=== PATIENT | female | born 1960 | race African-American/Black ===

== ENCOUNTER 2018-06-17 22:39 | Inpatient (IN) | payer MEDICAID, OTHER ==
[~2018-06-17] VITALS: Ht 162.6 cm; Wt 99.8 kg
--- NOTE | 2018-06-17 23:00 | NUR ---
ED Nurse Note: Patient FREDERICK from [facility] c/o edema in bilateral lower extremities, hematuria, and lower abdominal pain. Patient reports pain in bilateral lower extremities and lower abdomen for 1x day. Patient denies N/V. Patient states she noticed blood in her yan catheter earliar this morning. Patient finished last dose of ABX for a UTI today.
[2018-06-17] MEDS ORDERED: CRANBERRY500 M3 PO (23:22)
[2018-06-17] MEDS ORDERED: ACETAMINOPHEN325 M1 ORAL (23:22)
[2018-06-17] MEDS ORDERED: DIPHENHYDRAMINE25 M1 ORAL (23:22)
[2018-06-17] MEDS ORDERED: INVANZ1 G1 IM (23:22)
[2018-06-17] MEDS ORDERED: XARELTO15 MG ORAL (23:22)
[2018-06-17] MEDS ORDERED: QUETIAPINE FUMA25 MG ORAL (23:22)
[2018-06-17] MEDS ORDERED: BACLOFEN10 MG ORAL (23:22)
[2018-06-17] MEDS ORDERED: FUROSEMIDE40 MG ORAL (23:22)
[2018-06-17] MEDS ORDERED: LOVENOX40 MG/0.4 SUBQ (23:22)
[2018-06-17] MEDS ORDERED: ZOFRAN4 M1 ORAL (23:22)
[2018-06-17] MEDS ORDERED: FERROUS SULFAT325 M2 ORAL (23:22)
[2018-06-17] MEDS ORDERED: COLACE250 MG ORAL (23:22)
[2018-06-17] MEDS ORDERED: MOM30 ML ORAL (23:22)
[2018-06-17] MEDS ORDERED: PRO-AMATINE10 MG ORAL (23:22)
[2018-06-17] MEDS ORDERED: VITAMIN C500 M1 ORAL (23:22)
[2018-06-17] MEDS ORDERED: ZINC50 M1 ORAL (23:22)
[2018-06-17] MEDS ORDERED: CEPHALEXIN500 MG ORAL (23:22)
[2018-06-17] MEDS ORDERED: BISACODYL5 MG ORAL (23:22)
[2018-06-17] MEDS ORDERED: MELATONIN3 M2 PO (23:22)
[2018-06-17] MEDS ORDERED: ABILIFY10 MG ORAL (23:22)
[2018-06-17] MEDS ORDERED: MS CONTIN15 MG ORAL (23:22)
[2018-06-17] MEDS ORDERED: BENADRYL ITCH118 ML TP (23:22)
[2018-06-17] MEDS ORDERED: POTASSIUM CHLO20 ME2 ORAL (23:22)
[2018-06-17] MEDS ORDERED: NEXIUM40 MG ORAL (23:22)
[2018-06-17] MEDS ORDERED: STRIBILD TABLE1 EACH PO (23:22)
[2018-06-17] MEDS ORDERED: ZANAFLEX4 M1 ORAL (23:22)
[2018-06-17] MEDS ORDERED: NEURONTIN300 MG ORAL (23:22)
[2018-06-17] MEDS ORDERED: PERCOCET 5-3251 EACH ORAL (23:22)
--- NOTE | 2018-06-18 | NUR ---
ED Nurse Note: patient refused chest x ray
[2018-06-18 00:18] LABS: APPEARANCE,URINE CLOUDY; BILIRUBIN, URINE NEGATIVE (NEGATIVE); GLUCOSE, URINE (UA) NEGATIVE (NEGATIVE); KETONES,URINE 1+ (NEGATIVE); LEUKOCYTE ESTERASE ,URINE 3+ (NEGATIVE); NITRITE,URINE POSITIVE (NEGATIVE); PH,URINE 5 (4.5-8.0); PROTEIN,URINE 4+ (NEGATIVE); UROBILINOGEN,URINE 1 MG/DL (0.0-1.0)
[2018-06-18 00:22] LABS: BASOPHILS % (AUTO) 0.6 % (0.0-2.0); EOSINOPHILS % (AUTO) 2.4 % (0.0-3.0); HEMATOCRIT 39.1 % (37.0-47.0); HEMOGLOBIN 13.3 G/DL (12.0-16.0); LYMPHOCYTES % (AUTO) 24.5 % (20.0-45.0); MEAN CORPUSCULAR VOLUME 84 FL (80-99); MONOCYTES % (AUTO) 7.6 % (1.0-10.0); NEUTROPHILS % (AUTO) 64.9 % (45.0-75.0); PLATELET COUNT 389 K/UL (150-450); RED BLOOD COUNT 4.62 M/UL (4.20-5.40); RED CELL DISTRIBUTION WIDTH 13.4 % (11.6-14.8); WHITE BLOOD COUNT 8.6 K/UL (4.8-10.8)
[2018-06-18 00:32] VITALS: BP 118/68
[2018-06-18 00:37] LABS: ANION GAP 5 mmol/L (5-15); BLOOD UREA NITROGEN 13 mg/dL (7-18); CALCIUM 8.9 MG/DL (8.5-10.1); CARBON DIOXIDE 34 MMOL/L (21-32); CHLORIDE 100 MMOL/L (98-107); CREATININE 1.1 MG/DL (0.55-1.30); SODIUM 139 MMOL/L (136-145)
[2018-06-18 00:37] LABS: COLOR,URINE BROWN
[2018-06-18 00:41] LABS: ALANINE AMINOTRANSFERASE 16 U/L (12-78); ALBUMIN/GLOBULIN RATIO 0.7 (1.0-2.7); ALKALINE PHOSPHATASE 91 U/L (46-116); ASPARTATE AMINO TRANSFERASE 16 U/L (15-37); BILIRUBIN,TOTAL 0.7 MG/DL (0.2-1.0)
[2018-06-18] MEDS ORDERED: Piperacillin/Tazobactam 3.375 GM in NS 110 ML IVPB ONE (00:45)
[2018-06-18] MEDS ORDERED: Morphine Sulfate 4mg/ml Inj (IV/IM USE ONLY) IVP ONE (00:45)
--- NOTE | 2018-06-18 01:45 | NUR ---
ED Nurse Note: Patient sleeping comfortably on gurney, breathing is even and unlabored, VSS, no s/s of acute distress noted at this time.
--- NOTE | 2018-06-18 03:10 | NUR ---
ED Nurse Note: Patient refused PO potassium and to have her belongings recorded. ERMD aware
[2018-06-18 03:15] VITALS: BP 109/66
--- NOTE | 2018-06-18 03:21 | NUR ---
ED Nurse Note: Patient transferred to med/surg unit. Patient AOx4, VSS, non ambulatory, no s/s of acute distress noted at this time. Patient has wounds on bilateral lower extremities covered by a bandage, wounds on her sacral area. Patient sent with all personal belongings. Patient tolerated transfer well. Patient report given to Mima LAL at bedside.
[2018-06-18] MEDS ORDERED: Morphine Sulfate 2mg/ml Inj IVP PRN (03:45)
[2018-06-18 04:00] VITALS: BP 109/66
--- NOTE | 2018-06-18 04:04 | Emergency Room Report ---
History of Present Illness General Chief Complaint: Female Urogenital Problems Source: Patient, EMS Present Illness HPI 57-year-old female presents ED for evaluation. Brought in by EMS from half-way facility. Complaining of pain and swelling to both legs. Has been there for many days. States she's been treated for wounds on her legs. States the pain is not resolving. Also complaining of dysuria. States she's being currently treated for UTI with antibiotics. Pain is throbbing, 8 out of 10, nonradiating. Denies fevers or chills. States her wounds are weeping on the legs. No other aggravating relieving factors. Denies any other associated symptoms Allergies: Coded Allergies: No Known Allergies (Unverified , 06/17/18) Patient History Past Medical History: AFib, CVA/TIA, psych hx, HIV, renal disease Past Surgical History: none Pertinent Family History: none Social History: Denies: smoking, alcohol use, drug use Now: No Immunizations: UTD Reviewed Nursing Documentation: PMH: Agreed; PSxH: Agreed Nursing Documentation-PMH Hx Cardiac Problems: Yes - A Fib Hx Cancer: Yes - wounds on both legs, sacrum Hx Dialysis: Yes - UTI, Acute Kidney failure History Of Psychiatric Problem: Yes - Bipolar Hx Neurological Problems: Yes - Quadriplegia Hx Cerebrovascular Accident: Yes - Anemia, HIV+, Sepsis Review of Systems All Other Systems: negative except mentioned in HPI Physical Exam Vital Signs Date Time Temp Pulse Resp B/P (MAP) Pulse Ox O2 Delivery O2 Flow Rate FiO2 06/17/18 22:42 98.1 76 18 118/68 97 Room Air Sp02 EP Interpretation: reviewed, normal General Appearance: no apparent distress, alert, GCS 15, non-toxic Head: normocephalic Eyes: bilateral eye normal inspection, bilateral eye PERRL ENT: normal ENT inspection Neck: normal inspection Respiratory: chest non-tender, lungs clear, normal breath sounds, speaking full sentences Cardiovascular #1: regular rate, rhythm, no edema Gastrointestinal: normal bowel sounds, non tender, soft, non-distended, no guarding, no rebound Rectal: deferred Genitourinary: no CVA tenderness Musculoskeletal: swelling, tender Neurologic: alert, oriented x3, responsive, motor strength/tone normal, sensory intact, speech normal Psychiatric: anxious Skin: other - ulcerations to bilateral Lower extremities. induration/erythema Lymphatic: normal inspection Medical Decision Making Diagnostic Impression: Primary Impression: Bilateral lower leg cellulitis Additional Impressions: Hematuria Qualified Codes: R31.9 - Hematuria, unspecified UTI (urinary tract infection) Qualified Codes: N39.0 - Urinary tract infection, site not specified ER Course Hospital Course 57-year-old female presents to ED with pain, swelling to bilateral lower extremities. Differential diagnoses include: Cellulitis, sepsis, abscess, rash. Clinical course Patient placed on stretcher. After initial history and physical I ordered labs , blood Cx, UA, CXR, pain meds labs reviewed - no leukocytosis, Hb/Hct stable, K 3.0, lactic ok, UA + bacteria CXR - patient refused EKG - NSR, no acute ischemic changes interpreted by me antibiotics given. With the existing wounds on the legs consideration for nonhealing wounds with surrounding cellulitis Case discussed with Dr Mcgregor and he agreed to accept the patient to his service for further care and support Diagnosis - bilatearl lower extremity cellulitis , UTI, hematuria Patient admitted to floor in serrious condition Labs Test 06/17/18 23:50 06/18/18 00:00 White Blood Count 8.6 K/UL (4.8-10.8) Red Blood Count 4.62 M/UL (4.20-5.40) Hemoglobin 13.3 G/DL (12.0-16.0) Hematocrit 39.1 % (37.0-47.0) Mean Corpuscular Volume 84 FL (80-99) Mean Corpuscular Hemoglobin 28.7 PG (27.0-31.0) Mean Corpuscular Hemoglobin Concent 34.0 G/DL (32.0-36.0) Red Cell Distribution Width 13.4 % (11.6-14.8) Platelet Count 389 K/UL (150-450) Mean Platelet Volume 5.7 FL (6.5-10.1) Neutrophils (%) (Auto) 64.9 % (45.0-75.0) Lymphocytes (%) (Auto) 24.5 % (20.0-45.0) Monocytes (%) (Auto) 7.6 % (1.0-10.0) Eosinophils (%) (Auto) 2.4 % (0.0-3.0) Basophils (%) (Auto) 0.6 % (0.0-2.0) Sodium Level 139 MMOL/L (136-145) Potassium Level 3.0 MMOL/L (3.5-5.1) Chloride Level 100 MMOL/L (98-107) Carbon Dioxide Level 34 MMOL/L (21-32) Anion Gap 5 mmol/L (5-15) Blood Urea Nitrogen 13 mg/dL (7-18) Creatinine 1.1 MG/DL (0.55-1.30) Estimat Glomerular Filtration Rate > 60 mL/min (>60) Glucose Level 105 MG/DL (74-106) Lactic Acid Level 1.40 mmol/L (0.4-2.0) Calcium Level 8.9 MG/DL (8.5-10.1) Total Bilirubin 0.7 MG/DL (0.2-1.0) Aspartate Amino Transf (AST/SGOT) 16 U/L (15-37) Alanine Aminotransferase (ALT/SGPT) 16 U/L (12-78) Alkaline Phosphatase 91 U/L (46-116) Total Protein 7.6 G/DL (6.4-8.2) Albumin 3.0 G/DL (3.4-5.0) Globulin 4.6 g/dL Albumin/Globulin Ratio 0.7 (1.0-2.7) Urine Color Brown Urine Appearance Cloudy Urine pH 5 (4.5-8.0) Urine Specific [place] 1.020 (1.005-1.035) Urine Protein 4+ (NEGATIVE) Urine Glucose (UA) Negative (NEGATIVE) Urine Ketones 1+ (NEGATIVE) Urine Blood 5+ (NEGATIVE) Urine Nitrite Positive (NEGATIVE) Urine Bilirubin Negative (NEGATIVE) Urine Urobilinogen 1 MG/DL (0.0-1.0) Urine Leukocyte Esterase 3+ (NEGATIVE) Urine RBC Tntc /HPF (0 - 2) Urine WBC Tntc /HPF (0 - 2) Urine Squamous Epithelial Cells None /LPF (NONE/OCC) Urine Bacteria Moderate /HPF (NONE) Urine Yeast Moderate /HPF (NONE) EKG Diagnostic Results Rate: normal Rhythm: NSR ST Segments: no acute changes ASA given to the pt in ED: No Rhythm Strip Diag. Results EP Interpretation: yes Rhythm: NSR, no PVC's, no ectopy Last Vital Signs Date Time Temp Pulse Resp B/P (MAP) Pulse Ox O2 Delivery O2 Flow Rate FiO2 06/18/18 03:25 98.1 83 16 109/66 95 Room Air Status: improved Disposition: ADMITTED INPATIENT Condition: Serious Referrals: NON PHYSICIAN (PCP) Chicho Garcia MD Jun 18, 2018 04:04
[2018-06-18] MEDS ORDERED: Loperamide 2mg cap ORAL ONE (04:15)
[2018-06-18] MEDS: Morphine Sulfate 4mg/ml Inj (IV/IM USE ONLY) IVP PRN ×2 (04:24→11:08)
[2018-06-18] MEDS ORDERED: Piperacillin/Tazobactam 3.375 GM in D5W 110 ML IVPB SCH ×4 (06:00)
--- NOTE | 2018-06-18 06:00 | NUR ---
NURSE NOTES: Admitted a 57 year old female, alert and oriented x4, non-compliant, with complaint of pain on bilateral lower extremities. Will medicate as ordered. Pt refused wound photos, dressing change, repositions and cleaning. Explained the risks and benefits. Patient verbalized understanding but still refused. Spoke to Dr. Davis and obtained admission orders, carried out. MD ordered Loperamide one dose for pt's diarrhea x1 day per patient. MD also aware that patient refused Zosyn. SPR mattress on. Oriented to bed and room. Instructed the use of call light. Call light and needs in reach. Bed in lowest position, lock engaged and alarm on. Will continue to monitor.
[2018-06-18 06:44] LABS: BASOPHILS % (AUTO) 0.5 % (0.0-2.0); EOSINOPHILS % (AUTO) 1.8 % (0.0-3.0); HEMATOCRIT 38.6 % (37.0-47.0); LYMPHOCYTES % (AUTO) 23.7 % (20.0-45.0); MEAN CORPUSCULAR VOLUME 85 FL (80-99); MONOCYTES % (AUTO) 6.8 % (1.0-10.0); NEUTROPHILS % (AUTO) 67.3 % (45.0-75.0); PLATELET COUNT 371 K/UL (150-450); RED BLOOD COUNT 4.56 M/UL (4.20-5.40); RED CELL DISTRIBUTION WIDTH 13.7 % (11.6-14.8); WHITE BLOOD COUNT 7.8 K/UL (4.8-10.8)
[2018-06-18 07:25] LABS: ALANINE AMINOTRANSFERASE 16 U/L (12-78); ALBUMIN/GLOBULIN RATIO 0.6 (1.0-2.7); ALKALINE PHOSPHATASE 88 U/L (46-116); ANION GAP 6 mmol/L (5-15); ASPARTATE AMINO TRANSFERASE 22 U/L (15-37); BILIRUBIN,TOTAL 0.8 MG/DL (0.2-1.0); BLOOD UREA NITROGEN 13 mg/dL (7-18); CALCIUM 8.8 MG/DL (8.5-10.1); CARBON DIOXIDE 34 MMOL/L (21-32); CHLORIDE 99 MMOL/L (98-107); SODIUM 139 MMOL/L (136-145)
[2018-06-18 07:27] LABS: POTASSIUM 2.6 MMOL/L (3.5-5.1)
[2018-06-18 08:00] VITALS: BP 108/65
[2018-06-18] MEDS: Piperacillin/Tazobactam 3.375 GM in D5W 110 ML IVPB SCH ×2 (08:00→16:50)
--- NOTE | 2018-06-18 08:08 | NUR ---
NURSE NOTES: Received report from HALI Guillermo. Pt is in the bed. on the RA. No s/s of respiratory distress noted. Pt is very rude and demanding. C/o breakfast and requesting to have an additional tray. Call dietary and made aware. Informed Pt about the K level. Pt is refusing to take medications.Talked to Dr Davis. Informed K 2.6. Received an order for 40mEq one dose. Let Pt know. Still very rude and refusing to comply. Informed the need to take a picture and change dressing. Pt refusing. Will make an attempt later. Bed is in the lowest position. Call light is within the reach. Will continue to monitor
[2018-06-18] MEDS ORDERED: Enoxaparin 40mg Inj SUBQ SCH (09:00)
[2018-06-18] MEDS: Milk of Magnesia 30ml Ud ORAL SCH (09:00)
[2018-06-18] MEDS: Docusate 250mg cap ORAL SCH (09:00)
[2018-06-18] MEDS ORDERED: Bisacodyl EC 5mg tab ORAL PRN (09:00)
[2018-06-18] MEDS ORDERED: ARIPiprazole 10mg tab ORAL SCH (09:00)
[2018-06-18] MEDS ORDERED: oxyCODONE HCL/Acetaminophen 5/325mg ORAL PRN (09:00)
[2018-06-18] MEDS: Ascorbic Acid 500mg tab ORAL SCH ×2 (09:52→17:38)
[2018-06-18] MEDS: Midodrine 10mg tab ORAL SCH ×3 (09:53→17:38)
[2018-06-18] MEDS: Furosemide 40mg tab ORAL SCH (09:53)
[2018-06-18] MEDS: Xarelto 15mg tab ORAL SCH (09:53)
[2018-06-18] MEDS: MS Contin 15mg tab ORAL SCH ×2 (09:54→21:00)
--- NOTE | 2018-06-18 10:42 | NUR ---
RD ASSESSMENT & RECOMMENDATIONS SEE CARE ACTIVITY FOR COMPLETE ASSESSMENT DAILY ESTIMATED NEEDS: Needs based on Quadriplegia, cardiac 65kg / adj 23-28 kcals/kg [id number] total kcals 1.2-1.5 g protein/kg 78-98 g total protein Fluid per MD. On lasix NUTRITION DIAGNOSIS: Altered nutrition related lab values r/t clinical status as evidenced by low K (2.6), elev CO2 (34). CURRENT DIET: Regular PO DIET RECOMMENDATIONS: LOW NA DIET ADDITIONAL RECOMMENDATIONS: 1) Calibrated bed scale wts 2) Monitor lytes daily on lasix, replete as needed 3) F/up w/ WC eval 4) Add B-complex daily 5) F/up w/ H&P
[2018-06-18 12:00] VITALS: BP 143/89
--- NOTE | 2018-06-18 12:03 | History and Physical ---
History of Present Illness General Date patient seen: Jun 18, 2018 Time patient seen: 10:00 Reason for Hospitalization: Female Urogenital Problems Present Illness HPI 57 year old woman with morbid obesity, paraplegia, neurogenic bladder with chronic yan, atrial fibrillation, AIDS, chronic pain, sacral pressure ulcer who was sent to the ED from [facility] for evaluation of bilateral leg pain and swelling with weeping. Symptoms present for many days and progressively worsening despite wound care and parenteral antibiotics at the alf. She denies fever or chills. Also with concern for UTI due to gross hematuria Social History: No alcohol or tobacco Family History: No CAD or stroke Allergies: Coded Allergies: No Known Allergies (Unverified , 06/17/18) Medication History Scheduled Aripiprazole* (Abilify*), 10 MG ORAL DAILY, (Reported) Ascorbic Acid* (Vitamin C*), 500 MG ORAL TWICE A DAY, (Reported) Baclofen* (Baclofen*), 10 MG ORAL THREE TIMES A DAY, (Reported) Bisacodyl* (Dulcolax*), 20 MG ORAL ONCE, (Reported) Cephalexin* (Keflex*), 250 MG ORAL EVERY 6 HOURS, (Reported) Docusate Sodium (Docusate Sodium), 250 MG ORAL DAILY, (Reported) Ertapenem (Invanz), 1 GM IM DAILY, (Reported) Esomeprazole Magnesium (Nexium), 40 MG ORAL DAILY, (Reported) Furosemide* (Lasix*), 40 MG ORAL DAILY, (Reported) Gabapentin (Neurontin), 300 MG ORAL THREE TIMES A DAY, (Reported) Magnesium Hydroxide (Milk of Magnesia), 30 ML ORAL DAILY, (Reported) Midodrine (Midodrine HCl), 10 MG ORAL THREE TIMES A DAY, (Reported) Morphine Sulfate (Morphine Sulfate), 15 MG ORAL EVERY 12 HOURS, (Reported) Potassium Chloride (Potassium Chloride), 20 MEQ ORAL DAILY, (Reported) Quetiapine Fumarate* (Seroquel*), 25 MG ORAL DAILY, (Reported) Tizanidine Hcl (Zanaflex), 4 MG ORAL THREE TIMES A DAY, (Reported) Scheduled PRN Acetaminophen* (Acetaminophen 325MG Tablet*), 325 MG ORAL Q6H PRN for For Pain, (Reported) Diphenhydramine Hcl* (Diphenhydramine Hcl*), 25 MG ORAL Q6H PRN for Itching, ( Reported) Ondansetron (Zofran), 4 MG ORAL Q6H PRN for Nausea & Vomiting, (Reported) Oxycodone/Acetaminophen 5-325* (Percocet 5-325 Mg Tablet*), 1 TAB ORAL Q6H PRN for For Pain, (Reported) Miscellaneous Medications Cranberry Fruit (Cranberry), 500 MG PO, (Reported) Diphenhydramine HCl (Benadryl Itch Stopping), 118 ML TP, (Reported) Elvitegr/Cobicist/Emtric/Tenof (Stribild Tablet), 1 EACH PO, (Reported) Enoxaparin (Lovenox), 40 MG SUBQ, (Reported) Ferrous Sulfate (Ferrous Sulfate), 325 MG ORAL, (Reported) Melatonin (Melatonin), 3 MG PO, (Reported) Rivaroxaban (Xarelto), 15 MG ORAL, (Reported) Zinc (Zinc), 50 MG ORAL, (Reported) Patient History Healthcare decision maker Resuscitation status Full Code Advanced Directive on File Review of Systems Constitutional: Denies: chills, fever Eye: Denies: eye pain ENT: Denies: ear pain Respiratory: Denies: cough Cardiovascular: Denies: chest pain Gastrointestinal: Denies: abdominal pain Genitourinary: Denies: discharge, dysuria Musculoskeletal: Denies: back pain Skin: Denies: rash Neurological: Denies: headache Physical Exam General Appearance: no apparent distress, alert HEENT: normocephalic, atraumatic Neck: non-tender, normal alignment, supple Respiratory/Chest: chest wall non-tender, lungs clear, normal breath sounds Cardiovascular/Chest: normal peripheral pulses, normal rate Abdomen: normal bowel sounds, non tender Extremities: other - Bilateral Leg edema and erythema - dressing intact Skin Exam: warm/dry 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, alert, oriented x 3 Last 24 Hour Vital Signs Date Time Temp Pulse Resp B/P (MAP) Pulse Ox O2 Delivery O2 Flow Rate FiO2 06/18/18 08:00 99.2 97 20 108/65 (79) 97 06/18/18 05:29 Room Air 06/18/18 04:00 97.3 87 20 109/66 (80) 92 06/18/18 03:25 98.1 83 16 109/66 95 Room Air 06/18/18 03:15 98.1 83 16 109/66 95 Room Air 06/18/18 02:30 98.1 06/18/18 00:32 98.1 76 18 118/68 97 Room Air 06/17/18 22:42 98.1 76 18 11868 97 Room Air Intake and Output 06/17/18 06/18/18 19:00 07:00 Intake Total 700 ml Balance 700 ml Intake Oral 700 ml Laboratory Tests Test 06/17/18 23:50 06/18/18 00:00 06/18/18 05:30 White Blood Count 8.6 K/UL (4.8-10.8) 7.8 K/UL (4.8-10.8) Red Blood Count 4.62 M/UL (4.20-5.40) 4.56 M/UL (4.20-5.40) Hemoglobin 13.3 G/DL (12.0-16.0) 13.0 G/DL (12.0-16.0) Hematocrit 39.1 % (37.0-47.0) 38.6 % (37.0-47.0) Mean Corpuscular Volume 84 FL (80-99) 85 FL (80-99) Mean Corpuscular Hemoglobin 28.7 PG (27.0-31.0) 28.6 PG (27.0-31.0) Mean Corpuscular Hemoglobin Concent 34.0 G/DL (32.0-36.0) 33.8 G/DL (32.0-36.0) Red Cell Distribution Width 13.4 % (11.6-14.8) 13.7 % (11.6-14.8) Platelet Count 389 K/UL (150-450) 371 K/UL (150-450) Mean Platelet Volume 5.7 FL (6.5-10.1) L 5.4 FL (6.5-10.1) L Neutrophils (%) (Auto) 64.9 % (45.0-75.0) 67.3 % (45.0-75.0) Lymphocytes (%) (Auto) 24.5 % (20.0-45.0) 23.7 % (20.0-45.0) Monocytes (%) (Auto) 7.6 % (1.0-10.0) 6.8 % (1.0-10.0) Eosinophils (%) (Auto) 2.4 % (0.0-3.0) 1.8 % (0.0-3.0) Basophils (%) (Auto) 0.6 % (0.0-2.0) 0.5 % (0.0-2.0) Sodium Level 139 MMOL/L (136-145) 139 MMOL/L (136-145) Potassium Level 3.0 MMOL/L (3.5-5.1) L 2.6 MMOL/L (3.5-5.1) *L Chloride Level 100 MMOL/L (98-107) 99 MMOL/L (98-107) Carbon Dioxide Level 34 MMOL/L (21-32) H 34 MMOL/L (21-32) H Anion Gap 5 mmol/L (5-15) 6 mmol/L (5-15) Blood Urea Nitrogen 13 mg/dL (7-18) 13 mg/dL (7-18) Creatinine 1.1 MG/DL (0.55-1.30) 1.0 MG/DL (0.55-1.30) Estimat Glomerular Filtration Rate > 60 mL/min (>60) > 60 mL/min (>60) Glucose Level 105 MG/DL (74-106) 97 MG/DL (74-106) Lactic Acid Level 1.40 mmol/L (0.4-2.0) Calcium Level 8.9 MG/DL (8.5-10.1) 8.8 MG/DL (8.5-10.1) Total Bilirubin 0.7 MG/DL (0.2-1.0) 0.8 MG/DL (0.2-1.0) Aspartate Amino Transf (AST/SGOT) 16 U/L (15-37) 22 U/L (15-37) Alanine Aminotransferase (ALT/SGPT) 16 U/L (12-78) 16 U/L (12-78) Alkaline Phosphatase 91 U/L (46-116) 88 U/L (46-116) Total Protein 7.6 G/DL (6.4-8.2) 7.7 G/DL (6.4-8.2) Albumin 3.0 G/DL (3.4-5.0) L 3.0 G/DL (3.4-5.0) L Globulin 4.6 g/dL 4.7 g/dL Albumin/Globulin Ratio 0.7 (1.0-2.7) L 0.6 (1.0-2.7) L Urine Color Brown Urine Appearance Cloudy Urine pH 5 (4.5-8.0) Urine Specific [place] 1.020 (1.005-1.035) Urine Protein 4+ (NEGATIVE) H Urine Glucose (UA) Negative (NEGATIVE) Urine Ketones 1+ (NEGATIVE) H Urine Blood 5+ (NEGATIVE) H Urine Nitrite Positive (NEGATIVE) H Urine Bilirubin Negative (NEGATIVE) Urine Urobilinogen 1 MG/DL (0.0-1.0) H Urine Leukocyte Esterase 3+ (NEGATIVE) H Urine RBC Tntc /HPF (0 - 2) H Urine WBC Tntc /HPF (0 - 2) H Urine Squamous Epithelial Cells None /LPF (NONE/OCC) Urine Bacteria Moderate /HPF (NONE) H Urine Yeast Moderate /HPF (NONE) H Height (Feet): 5 Height (Inches): 4.00 Weight (Pounds): 220 Medications Current Medications Medications (Trade) Dose Ordered Sig/Kevin Route PRN Reason Start Time Stop Time Status Last Admin Dose Admin Acetaminophen (Tylenol) 325 mg Q6H PRN ORAL Mild Pain (Pain Scale 1-3) 06/18/18 09:00 07/18/18 08:59 Aripiprazole (Abilify) 10 mg DAILY ORAL 06/18/18 09:00 07/18/18 08:59 06/18/18 09:51 Ascorbic Acid (Vitamin C) 500 mg TWICE A DAY ORAL 06/18/18 09:00 07/18/18 08:59 06/18/18 09:52 Baclofen (Lioresal) 10 mg THREE TIMES A DAY ORAL 06/18/18 09:00 07/18/18 08:59 06/18/18 09:53 Bisacodyl (Dulcolax) 20 mg DAILYPRN PRN ORAL Constipation 06/18/18 09:00 07/18/18 08:59 Dextrose (Dextrose 50%) 25 ml Q30M PRN IV Hypoglycemia 06/18/18 09:00 07/18/18 08:59 Dextrose (Dextrose 50%) 50 ml Q30M PRN IV Hypoglycemia 06/18/18 09:00 07/18/18 08:59 Diphenhydramine HCl (Benadryl) 25 mg Q6H PRN ORAL Itching 06/18/18 09:00 07/18/18 08:59 06/18/18 10:04 Docusate Sodium (Colace) 250 mg DAILY ORAL 06/18/18 09:00 07/18/18 08:59 Enoxaparin Sodium (Lovenox) 40 mg DAILY SUBQ 06/18/18 09:00 07/18/18 08:59 Furosemide (Lasix) 40 mg DAILY ORAL 06/18/18 09:00 07/18/18 08:59 06/18/18 09:53 Gabapentin (Neurontin) 300 mg THREE TIMES A DAY ORAL 06/18/18 09:00 07/18/18 08:59 06/18/18 09:52 Magnesium Hydroxide (Mom) 30 ml DAILY ORAL 06/18/18 09:00 07/18/18 08:59 Midodrine (Pro-Amatine) 10 mg THREE TIMES A DAY ORAL 06/18/18 09:00 07/18/18 08:59 06/18/18 09:53 Morphine Sulfate (MS Contin) 15 mg EVERY 12 HOURS ORAL 06/18/18 09:00 06/25/18 08:59 06/18/18 09:54 Morphine Sulfate (Morphine Sulfate) 2 mg EVERY 6 HOURS PRN IVP Moderate Pain (Pain Scale 4-6) 06/18/18 03:45 06/25/18 03:44 Morphine Sulfate (Morphine Sulfate) 4 mg EVERY 6 HOURS PRN IVP Severe Pain (Pain Scale 7-10) 06/18/18 03:45 06/25/18 03:44 06/18/18 11:08 Ondansetron HCl (Zofran) 4 mg Q6H PRN ORAL Nausea & Vomiting 06/18/18 09:00 07/18/18 08:59 Oxycodone/ Acetaminophen (Percocet 5-325) 1 tab Q6H PRN ORAL Moderate Pain (Pain Scale 4-6) 06/18/18 09:00 06/25/18 08:59 Piperacillin Sod/ Tazobactam Sod 3.375 gm/Dextrose 110 ml @ 27.5 mls/hr Q8H IVPB 06/18/18 08:00 06/25/18 07:59 Quetiapine Fumarate (SEROquel) 25 mg DAILY ORAL 06/18/18 09:00 07/18/18 08:59 06/18/18 09:52 Rivaroxaban (Xarelto) 15 mg DAILY ORAL 06/18/18 09:00 07/18/18 08:59 06/18/18 09:53 Assessment/Plan Status Narrative #Bilateral LE cellulitis and drainage -admit to medical service -start IV antibiotics with vancomycin and Zosyn -local wound care -Surgery consulted -ID consulted #Chronic Yan with pyuria and hematuria, possible catheter related UTI -continue antibiotics -followup cultures #Chronic sacral pressure ulcer -Surgery consulted #Hypokalemia -replace and repeat BMP #Chronic pain #Narcotic dependance -resume outpatient pain regimen #History of atrial fibrillation -continue Xarelto #morbid obesity #paraplegia #neurogenic bladder -continue supportive care VTE PPx Xarelto Full Code I spent 70 minutes on this patient's case, and 35 minutes was dedicated to counseling and/or care coordination. Jitendra Sharma MD Jun 18, 2018 12:03
--- NOTE | 2018-06-18 12:12 | NUR ---
NURSE NOTES: Pt refused her BLE wounds pictures to be taken. Tried to explain the benefits. Pt still refused. CN notified
[2018-06-18] MEDS ORDERED: LORazepam 1mg tab ORAL SCH (12:45)
--- NOTE | 2018-06-18 12:45 | Consultation ---
History of Present Illness General Chief Complaint: Female Urogenital Problems Present Illness HPI 57 year old woman with hx of bipolar, agitation, morbid obesity, paraplegia, , atrial fibrillation, AIDS, chronic pain, sacral pressure ulcer who is here for medical stabilization. the pt is abusive towards the staff and yelling. the pt is irritable and anxious. the pt needs redirection. the pt has poor cognition. the pt has no insight. the pt stated that she is not able to tolerate the pain. no si/hi. Allergies: Coded Allergies: No Known Allergies (Unverified , 06/17/18) Medication History Scheduled Aripiprazole* (Abilify*), 10 MG ORAL DAILY, (Reported) Ascorbic Acid* (Vitamin C*), 500 MG ORAL TWICE A DAY, (Reported) Baclofen* (Baclofen*), 10 MG ORAL THREE TIMES A DAY, (Reported) Bisacodyl* (Dulcolax*), 20 MG ORAL ONCE, (Reported) Cephalexin* (Keflex*), 250 MG ORAL EVERY 6 HOURS, (Reported) Docusate Sodium (Docusate Sodium), 250 MG ORAL DAILY, (Reported) Ertapenem (Invanz), 1 GM IM DAILY, (Reported) Esomeprazole Magnesium (Nexium), 40 MG ORAL DAILY, (Reported) Furosemide* (Lasix*), 40 MG ORAL DAILY, (Reported) Gabapentin (Neurontin), 300 MG ORAL THREE TIMES A DAY, (Reported) Magnesium Hydroxide (Milk of Magnesia), 30 ML ORAL DAILY, (Reported) Midodrine (Midodrine HCl), 10 MG ORAL THREE TIMES A DAY, (Reported) Morphine Sulfate (Morphine Sulfate), 15 MG ORAL EVERY 12 HOURS, (Reported) Potassium Chloride (Potassium Chloride), 20 MEQ ORAL DAILY, (Reported) Quetiapine Fumarate* (Seroquel*), 25 MG ORAL DAILY, (Reported) Tizanidine Hcl (Zanaflex), 4 MG ORAL THREE TIMES A DAY, (Reported) Scheduled PRN Acetaminophen* (Acetaminophen 325MG Tablet*), 325 MG ORAL Q6H PRN for For Pain, (Reported) Diphenhydramine Hcl* (Diphenhydramine Hcl*), 25 MG ORAL Q6H PRN for Itching, ( Reported) Ondansetron (Zofran), 4 MG ORAL Q6H PRN for Nausea & Vomiting, (Reported) Oxycodone/Acetaminophen 5-325* (Percocet 5-325 Mg Tablet*), 1 TAB ORAL Q6H PRN for For Pain, (Reported) Miscellaneous Medications Cranberry Fruit (Cranberry), 500 MG PO, (Reported) Diphenhydramine HCl (Benadryl Itch Stopping), 118 ML TP, (Reported) Elvitegr/Cobicist/Emtric/Tenof (Stribild Tablet), 1 EACH PO, (Reported) Enoxaparin (Lovenox), 40 MG SUBQ, (Reported) Ferrous Sulfate (Ferrous Sulfate), 325 MG ORAL, (Reported) Melatonin (Melatonin), 3 MG PO, (Reported) Rivaroxaban (Xarelto), 15 MG ORAL, (Reported) Zinc (Zinc), 50 MG ORAL, (Reported) Patient History History Provided By: Patient, Medical Record, PMD Healthcare decision maker Resuscitation status Full Code Advanced Directive on File Past Medical/Surgical History Past Medical/Surgical History: (1) Hematuria (2) UTI (urinary tract infection) (3) Bilateral lower leg cellulitis Review of Systems Psychiatric: Reports: prior hx, anxiety, depressed feelings, emotional problems Physical Exam General Appearance: alert, severe distress, agitated Neurologic: oriented x 3, responsive Last 24 Hour Vital Signs Date Time Temp Pulse Resp B/P (MAP) Pulse Ox O2 Delivery O2 Flow Rate FiO2 06/18/18 09:00 Room Air 06/18/18 08:00 99.2 97 20 108/65 (79) 97 06/18/18 05:29 Room Air 06/18/18 04:00 97.3 87 20 109/66 (80) 92 06/18/18 03:25 98.1 83 16 109/66 95 Room Air 06/18/18 03:15 98.1 83 16 109/66 95 Room Air 06/18/18 02:30 98.1 06/18/18 00:32 98.1 76 18 118/68 97 Room Air 06/17/18 22:42 98.1 76 18 118/68 97 Room Air Intake and Output 06/17/18 06/18/18 19:00 07:00 Intake Total 700 ml Balance 700 ml Intake Oral 700 ml Laboratory Tests Test 06/17/18 23:50 06/18/18 00:00 06/18/18 05:30 White Blood Count 8.6 K/UL (4.8-10.8) 7.8 K/UL (4.8-10.8) Red Blood Count 4.62 M/UL (4.20-5.40) 4.56 M/UL (4.20-5.40) Hemoglobin 13.3 G/DL (12.0-16.0) 13.0 G/DL (12.0-16.0) Hematocrit 39.1 % (37.0-47.0) 38.6 % (37.0-47.0) Mean Corpuscular Volume 84 FL (80-99) 85 FL (80-99) Mean Corpuscular Hemoglobin 28.7 PG (27.0-31.0) 28.6 PG (27.0-31.0) Mean Corpuscular Hemoglobin Concent 34.0 G/DL (32.0-36.0) 33.8 G/DL (32.0-36.0) Red Cell Distribution Width 13.4 % (11.6-14.8) 13.7 % (11.6-14.8) Platelet Count 389 K/UL (150-450) 371 K/UL (150-450) Mean Platelet Volume 5.7 FL (6.5-10.1) L 5.4 FL (6.5-10.1) L Neutrophils (%) (Auto) 64.9 % (45.0-75.0) 67.3 % (45.0-75.0) Lymphocytes (%) (Auto) 24.5 % (20.0-45.0) 23.7 % (20.0-45.0) Monocytes (%) (Auto) 7.6 % (1.0-10.0) 6.8 % (1.0-10.0) Eosinophils (%) (Auto) 2.4 % (0.0-3.0) 1.8 % (0.0-3.0) Basophils (%) (Auto) 0.6 % (0.0-2.0) 0.5 % (0.0-2.0) Sodium Level 139 MMOL/L (136-145) 139 MMOL/L (136-145) Potassium Level 3.0 MMOL/L (3.5-5.1) L 2.6 MMOL/L (3.5-5.1) *L Chloride Level 100 MMOL/L (98-107) 99 MMOL/L (98-107) Carbon Dioxide Level 34 MMOL/L (21-32) H 34 MMOL/L (21-32) H Anion Gap 5 mmol/L (5-15) 6 mmol/L (5-15) Blood Urea Nitrogen 13 mg/dL (7-18) 13 mg/dL (7-18) Creatinine 1.1 MG/DL (0.55-1.30) 1.0 MG/DL (0.55-1.30) Estimat Glomerular Filtration Rate > 60 mL/min (>60) > 60 mL/min (>60) Glucose Level 105 MG/DL (74-106) 97 MG/DL (74-106) Lactic Acid Level 1.40 mmol/L (0.4-2.0) Calcium Level 8.9 MG/DL (8.5-10.1) 8.8 MG/DL (8.5-10.1) Total Bilirubin 0.7 MG/DL (0.2-1.0) 0.8 MG/DL (0.2-1.0) Aspartate Amino Transf (AST/SGOT) 16 U/L (15-37) 22 U/L (15-37) Alanine Aminotransferase (ALT/SGPT) 16 U/L (12-78) 16 U/L (12-78) Alkaline Phosphatase 91 U/L (46-116) 88 U/L (46-116) Total Protein 7.6 G/DL (6.4-8.2) 7.7 G/DL (6.4-8.2) Albumin 3.0 G/DL (3.4-5.0) L 3.0 G/DL (3.4-5.0) L Globulin 4.6 g/dL 4.7 g/dL Albumin/Globulin Ratio 0.7 (1.0-2.7) L 0.6 (1.0-2.7) L Urine Color Brown Urine Appearance Cloudy Urine pH 5 (4.5-8.0) Urine Specific [place] 1.020 (1.005-1.035) Urine Protein 4+ (NEGATIVE) H Urine Glucose (UA) Negative (NEGATIVE) Urine Ketones 1+ (NEGATIVE) H Urine Blood 5+ (NEGATIVE) H Urine Nitrite Positive (NEGATIVE) H Urine Bilirubin Negative (NEGATIVE) Urine Urobilinogen 1 MG/DL (0.0-1.0) H Urine Leukocyte Esterase 3+ (NEGATIVE) H Urine RBC Tntc /HPF (0 - 2) H Urine WBC Tntc /HPF (0 - 2) H Urine Squamous Epithelial Cells None /LPF (NONE/OCC) Urine Bacteria Moderate /HPF (NONE) H Urine Yeast Moderate /HPF (NONE) H Height (Feet): 5 Height (Inches): 4.00 Weight (Pounds): 220 Medications Current Medications Medications (Trade) Dose Ordered Sig/Kevin Route PRN Reason Start Time Stop Time Status Last Admin Dose Admin Acetaminophen (Tylenol) 325 mg Q6H PRN ORAL Mild Pain (Pain Scale 1-3) 06/18/18 09:00 07/18/18 08:59 Ascorbic Acid (Vitamin C) 500 mg TWICE A DAY ORAL 06/18/18 09:00 07/18/18 08:59 06/18/18 09:52 Baclofen (Lioresal) 10 mg THREE TIMES A DAY ORAL 06/18/18 09:00 07/18/18 08:59 06/18/18 09:53 Bisacodyl (Dulcolax) 20 mg DAILYPRN PRN ORAL Constipation 06/18/18 09:00 07/18/18 08:59 Dextrose (Dextrose 50%) 25 ml Q30M PRN IV Hypoglycemia 06/18/18 09:00 07/18/18 08:59 Dextrose (Dextrose 50%) 50 ml Q30M PRN IV Hypoglycemia 06/18/18 09:00 07/18/18 08:59 Diphenhydramine HCl (Benadryl) 25 mg Q6H PRN ORAL Itching 06/18/18 09:00 07/18/18 08:59 06/18/18 10:04 Docusate Sodium (Colace) 250 mg DAILY ORAL 06/18/18 09:00 07/18/18 08:59 Furosemide (Lasix) 40 mg DAILY ORAL 06/18/18 09:00 07/18/18 08:59 06/18/18 09:53 Gabapentin (Neurontin) 300 mg THREE TIMES A DAY ORAL 06/18/18 09:00 07/18/18 08:59 06/18/18 09:52 Lorazepam (Ativan) 2 mg ONCE ORAL 06/18/18 12:45 06/18/18 14:00 Lorazepam (Ativan) 2 mg Q6H PRN ORAL For Anxiety 06/18/18 12:30 06/25/18 12:29 UNV Magnesium Hydroxide (Mom) 30 ml DAILY ORAL 06/18/18 09:00 07/18/18 08:59 Midodrine (Pro-Amatine) 10 mg THREE TIMES A DAY ORAL 06/18/18 09:00 07/18/18 08:59 06/18/18 09:53 Morphine Sulfate (MS Contin) 15 mg EVERY 12 HOURS ORAL 06/18/18 09:00 06/25/18 08:59 06/18/18 09:54 Morphine Sulfate (Morphine Sulfate) 2 mg EVERY 6 HOURS PRN IVP Moderate Pain (Pain Scale 4-6) 06/18/18 03:45 06/25/18 03:44 Morphine Sulfate (Morphine Sulfate) 4 mg EVERY 6 HOURS PRN IVP Severe Pain (Pain Scale 7-10) 06/18/18 03:45 06/25/18 03:44 06/18/18 11:08 Ondansetron HCl (Zofran) 4 mg Q6H PRN ORAL Nausea & Vomiting 06/18/18 09:00 07/18/18 08:59 Oxycodone/ Acetaminophen (Percocet 5-325) 1 tab Q6H PRN ORAL Moderate Pain (Pain Scale 4-6) 06/18/18 09:00 06/25/18 08:59 Piperacillin Sod/ Tazobactam Sod 3.375 gm/Dextrose 110 ml @ 27.5 mls/hr Q8H IVPB 06/18/18 08:00 06/25/18 07:59 Quetiapine Fumarate (SEROquel) 100 mg BEDTIME ORAL 06/18/18 21:00 07/18/18 20:59 UNV Rivaroxaban (Xarelto) 15 mg DAILY ORAL 06/18/18 09:00 07/18/18 08:59 06/18/18 09:53 Vancomycin HCl (Vanco rx to dose) 1 ea DAILY PRN MISC Per rx protocol 06/18/18 12:15 07/18/18 12:14 Vancomycin HCl 750 mg/Sodium Chloride 275 ml @ 183.333 mls/hr Q12H IVPB 06/18/18 15:00 06/23/18 14:59 Assessment/Plan Problem List: (1) Bipolar 1 disorder ICD Codes: F31.9 - Bipolar disorder, unspecified SNOMED: [id number] Status: stable, progressing Assessment/Plan increase Seroquel to 100mg po qhs dc Abilify Ativan 2mg q 6hr/prn/agitation Ariel Boyer MD Jun 18, 2018 12:45
--- NOTE | 2018-06-18 14:37 | NUR ---
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 98.1 HR 76 RR 18 B/P 118/68 K 3.0 URINE + PROTEIN, KETONES,UROBILINOGEN, LEUKOCYTES ESTERASE,NITRITES IS: ZOSYN IV MORPHINE IV ADMITTED TO MED/SURG MED/SURG STATUS DCP RETURN TO SNF
[2018-06-18] MEDS: Vancomycin 750mg/NS 275ml IVPB SCH ×2 (15:30)
[2018-06-18] MEDS ORDERED: NS 500ML ONE (16:45)
[2018-06-18] MEDS ORDERED: Tubing IV Secondary IV ONE (16:45)
[2018-06-18] MEDS ORDERED: LORazepam 1mg tab ORAL PRN (18:00)
--- NOTE | 2018-06-18 18:18 | Infectious Diseases Prog Note ---
Assessment/Plan Assessment/Plan Full consult dictated: A) 1) bilateral leg/foot cellulitis 2) uti 3) hiv - on Stribild but not available at [facility] per pharmacy 4) sacral wound P) 1) vancomycin and zosyn 2) check labs, cd4, viral load, check cultures 3) patient to take home Stribild if possible 4) monitor cellulitis 5) surgery evaluation of sacral wound 6) thank you Subjective Allergies: Coded Allergies: No Known Allergies (Unverified , 06/17/18) Objective Vital Signs Last 24 Hour Vital Signs Date Time Temp Pulse Resp B/P (MAP) Pulse Ox O2 Delivery O2 Flow Rate FiO2 06/18/18 12:00 98.3 61 20 143/89 (107) 99 06/18/18 09:00 Room Air 06/18/18 08:00 99.2 97 20 108/65 (79) 97 06/18/18 05:29 Room Air 06/18/18 04:00 97.3 87 20 109/66 (80) 92 06/18/18 03:25 98.1 83 16 109/66 95 Room Air 06/18/18 03:15 98.1 83 16 109/66 95 Room Air 06/18/18 02:30 98.1 06/18/18 00:32 98.1 76 18 118/68 97 Room Air 06/17/18 22:42 98.1 76 18 118/68 97 Room Air Height (Feet): 5 Height (Inches): 4.00 Weight (Pounds): 220 Laboratory Tests Test 06/17/18 23:50 06/18/18 00:00 06/18/18 05:30 White Blood Count 8.6 K/UL (4.8-10.8) 7.8 K/UL (4.8-10.8) Red Blood Count 4.62 M/UL (4.20-5.40) 4.56 M/UL (4.20-5.40) Hemoglobin 13.3 G/DL (12.0-16.0) 13.0 G/DL (12.0-16.0) Hematocrit 39.1 % (37.0-47.0) 38.6 % (37.0-47.0) Mean Corpuscular Volume 84 FL (80-99) 85 FL (80-99) Mean Corpuscular Hemoglobin 28.7 PG (27.0-31.0) 28.6 PG (27.0-31.0) Mean Corpuscular Hemoglobin Concent 34.0 G/DL (32.0-36.0) 33.8 G/DL (32.0-36.0) Red Cell Distribution Width 13.4 % (11.6-14.8) 13.7 % (11.6-14.8) Platelet Count 389 K/UL (150-450) 371 K/UL (150-450) Mean Platelet Volume 5.7 FL (6.5-10.1) L 5.4 FL (6.5-10.1) L Neutrophils (%) (Auto) 64.9 % (45.0-75.0) 67.3 % (45.0-75.0) Lymphocytes (%) (Auto) 24.5 % (20.0-45.0) 23.7 % (20.0-45.0) Monocytes (%) (Auto) 7.6 % (1.0-10.0) 6.8 % (1.0-10.0) Eosinophils (%) (Auto) 2.4 % (0.0-3.0) 1.8 % (0.0-3.0) Basophils (%) (Auto) 0.6 % (0.0-2.0) 0.5 % (0.0-2.0) Sodium Level 139 MMOL/L (136-145) 139 MMOL/L (136-145) Potassium Level 3.0 MMOL/L (3.5-5.1) L 2.6 MMOL/L (3.5-5.1) *L Chloride Level 100 MMOL/L (98-107) 99 MMOL/L (98-107) Carbon Dioxide Level 34 MMOL/L (21-32) H 34 MMOL/L (21-32) H Anion Gap 5 mmol/L (5-15) 6 mmol/L (5-15) Blood Urea Nitrogen 13 mg/dL (7-18) 13 mg/dL (7-18) Creatinine 1.1 MG/DL (0.55-1.30) 1.0 MG/DL (0.55-1.30) Estimat Glomerular Filtration Rate > 60 mL/min (>60) > 60 mL/min (>60) Glucose Level 105 MG/DL (74-106) 97 MG/DL (74-106) Lactic Acid Level 1.40 mmol/L (0.4-2.0) Calcium Level 8.9 MG/DL (8.5-10.1) 8.8 MG/DL (8.5-10.1) Total Bilirubin 0.7 MG/DL (0.2-1.0) 0.8 MG/DL (0.2-1.0) Aspartate Amino Transf (AST/SGOT) 16 U/L (15-37) 22 U/L (15-37) Alanine Aminotransferase (ALT/SGPT) 16 U/L (12-78) 16 U/L (12-78) Alkaline Phosphatase 91 U/L (46-116) 88 U/L (46-116) Total Protein 7.6 G/DL (6.4-8.2) 7.7 G/DL (6.4-8.2) Albumin 3.0 G/DL (3.4-5.0) L 3.0 G/DL (3.4-5.0) L Globulin 4.6 g/dL 4.7 g/dL Albumin/Globulin Ratio 0.7 (1.0-2.7) L 0.6 (1.0-2.7) L Urine Color Brown Urine Appearance Cloudy Urine pH 5 (4.5-8.0) Urine Specific [place] 1.020 (1.005-1.035) Urine Protein 4+ (NEGATIVE) H Urine Glucose (UA) Negative (NEGATIVE) Urine Ketones 1+ (NEGATIVE) H Urine Blood 5+ (NEGATIVE) H Urine Nitrite Positive (NEGATIVE) H Urine Bilirubin Negative (NEGATIVE) Urine Urobilinogen 1 MG/DL (0.0-1.0) H Urine Leukocyte Esterase 3+ (NEGATIVE) H Urine RBC Tntc /HPF (0 - 2) H Urine WBC Tntc /HPF (0 - 2) H Urine Squamous Epithelial Cells None /LPF (NONE/OCC) Urine Bacteria Moderate /HPF (NONE) H Urine Yeast Moderate /HPF (NONE) H Current Medications Medications (Trade) Dose Ordered Sig/Kevin Route PRN Reason Start Time Stop Time Status Last Admin Dose Admin Acetaminophen (Tylenol) 325 mg Q6H PRN ORAL Mild Pain (Pain Scale 1-3) 06/18/18 09:00 07/18/18 08:59 Ascorbic Acid (Vitamin C) 500 mg TWICE A DAY ORAL 06/18/18 09:00 07/18/18 08:59 06/18/18 17:38 Baclofen (Lioresal) 10 mg THREE TIMES A DAY ORAL 06/18/18 09:00 07/18/18 08:59 06/18/18 17:38 Bisacodyl (Dulcolax) 20 mg DAILYPRN PRN ORAL Constipation 06/18/18 09:00 07/18/18 08:59 Dextrose (Dextrose 50%) 25 ml Q30M PRN IV Hypoglycemia 06/18/18 09:00 07/18/18 08:59 Dextrose (Dextrose 50%) 50 ml Q30M PRN IV Hypoglycemia 06/18/18 09:00 07/18/18 08:59 Diphenhydramine HCl (Benadryl) 25 mg Q6H PRN ORAL Itching 06/18/18 09:00 07/18/18 08:59 06/18/18 10:04 Docusate Sodium (Colace) 250 mg DAILY ORAL 06/18/18 09:00 07/18/18 08:59 Furosemide (Lasix) 40 mg DAILY ORAL 06/18/18 09:00 07/18/18 08:59 06/18/18 09:53 Gabapentin (Neurontin) 300 mg THREE TIMES A DAY ORAL 06/18/18 09:00 07/18/18 08:59 06/18/18 17:38 Lorazepam (Ativan) 2 mg Q6H PRN ORAL For Anxiety 06/18/18 18:00 06/25/18 17:59 Magnesium Hydroxide (Mom) 30 ml DAILY ORAL 06/18/18 09:00 07/18/18 08:59 Midodrine (Pro-Amatine) 10 mg THREE TIMES A DAY ORAL 06/18/18 09:00 07/18/18 08:59 06/18/18 17:38 Morphine Sulfate (MS Contin) 15 mg EVERY 12 HOURS ORAL 06/18/18 09:00 06/25/18 08:59 06/18/18 09:54 Morphine Sulfate (Morphine Sulfate) 2 mg EVERY 6 HOURS PRN IVP Moderate Pain (Pain Scale 4-6) 06/18/18 03:45 06/25/18 03:44 Morphine Sulfate (Morphine Sulfate) 4 mg EVERY 6 HOURS PRN IVP Severe Pain (Pain Scale 7-10) 06/18/18 03:45 06/25/18 03:44 06/18/18 11:08 Ondansetron HCl (Zofran) 4 mg Q6H PRN ORAL Nausea & Vomiting 06/18/18 09:00 07/18/18 08:59 Oxycodone/ Acetaminophen (Percocet 5-325) 1 tab Q6H PRN ORAL Moderate Pain (Pain Scale 4-6) 06/18/18 09:00 06/25/18 08:59 Piperacillin Sod/ Tazobactam Sod 3.375 gm/Dextrose 110 ml @ 27.5 mls/hr Q8H IVPB 06/18/18 08:00 06/25/18 07:59 06/18/18 16:50 Quetiapine Fumarate (SEROquel) 100 mg BEDTIME ORAL 06/18/18 21:00 07/18/18 20:59 Rivaroxaban (Xarelto) 15 mg DAILY ORAL 06/18/18 09:00 07/18/18 08:59 06/18/18 09:53 Vancomycin HCl (Vanco rx to dose) 1 ea DAILY PRN MISC Per rx protocol 06/18/18 12:15 07/18/18 12:14 Vancomycin HCl 750 mg/Sodium Chloride 275 ml @ 183.333 mls/hr Q12H IVPB 06/18/18 15:00 06/23/18 14:59 06/18/18 15:30 Placido Butterfield MD Jun 18, 2018 18:18
--- NOTE | 2018-06-18 19:28 | NUR ---
HAND-OFF: Report given to HALI Felix.
--- NOTE | 2018-06-18 19:30 | NUR ---
NURSE NOTES: Received patient in bed sleeping arousable to verbal stimuli. Open eyes but did not reply. No complain of pain or discomfort at this time. Bed in lowest position and locked. Call light within reach. Will continue to monitor.
--- NOTE | 2018-06-18 22:48 | NUR ---
NURSE NOTES: Patient refused medications and doesn't want to talk to nurse. Patient went back to sleep.
[2018-06-19] MEDS: Piperacillin/Tazobactam 3.375 GM in D5W 110 ML IVPB SCH ×3 (00:34→17:26)
--- NOTE | 2018-06-19 01:15 | Consultation ---
DATE OF CONSULTATION: 06/18/2018 INFECTIOUS DISEASES CONSULTATION CONSULTING PHYSICIAN: Placido Butterfield M.D. ATTENDING PHYSICIAN: Frances Casas M.D. REFERRING PHYSICIAN: Frances Casas M.D. REASON FOR CONSULTATION: Bilateral leg and foot cellulitis, possible infected sacral wound, UTI, and HIV. CHIEF COMPLAINT: The patient's chief complaint coming in to the hospital is cellulitis of lower extremities and also hematuria. HISTORY OF PRESENT ILLNESS: This is a very pleasant 57-year-old female, comes in to [facility] with bilateral leg and foot cellulitis with redness and warmth. She also has urinary tract infection. She has a history of HIV, T-cell counts are unknown. The patient also has sacral wound, possibly infected. Infectious Disease consultation is requested. The patient states she has had cellulitis and swelling for some time. The patient is currently on vancomycin and Zosyn. MAR was noted. Orders were noted. Notes were reviewed. REVIEW OF SYSTEMS: CONSTITUTIONAL: She has generalized fatigue. No new focal weakness. No fever or chills. HEAD AND NECK: No head pain or neck pain. CARDIAC: No chest pain. GASTROINTESTINAL: No nausea, vomiting, or diarrhea. GENITOURINARY: She has a chronic Tinajero. PULMONARY: No congestion or shortness of breath. SKIN: No rash. EXTREMITIES: She has leg and foot pain. NEUROLOGIC: No seizures. She has sacral wound. PAST MEDICAL HISTORY: The patient has a past medical history of the following. The patient has a past medical history of HIV, T-cell count is unknown. She is on anti-retroviral therapy including Stribild. In addition to HIV, she has chronic Tinajero. She also has a history of bipolar disease, agitation, and paraplegia. She also per the records has a history of AIDS, atrial fibrillation, and chronic pain syndrome. Other past medical history, neurogenic bladder, Tinajero, atrial fibrillation, sacral wound, HIV/AIDS, history of morbid obesity, chronic pain syndrome, history of CVA, TIA, psychiatric disease, renal disease, and anemia. ALLERGIES: No known drug allergies. No antibiotic allergies. SOCIAL HISTORY: Negative for smoking, alcohol, or drug abuse. FAMILY HISTORY: Noncontributory. MEDICATIONS: Upon reviewing the MAR, she is on the following medications. She is on Ativan. She is on quetiapine. She is on acetaminophen, ascorbic acid, Bactrim, bisacodyl, and diphenhydramine. She is on docusate, furosemide, gabapentin, magnesium hydroxide, midodrine, morphine, Zofran, oxycodone, Xarelto, Zosyn, and vancomycin. Outside anti-retroviral therapy, she is on Stribild. This is not available at [facility] and discussed with pharmacy. Outside medications are also noted and reconciliated. PHYSICAL EXAMINATION: VITAL SIGNS: Temperature is 98.3, pulse rate is 61, respiratory rate 20, blood pressure 143/89, and saturation 99%. GENERAL: Alert, responsive, in no acute distress. HEAD AND NECK: Oral exam, no thrush. Eye exam, no icterus. No JVD. Normocephalic. Neck is supple. HEART: Regular. No gallop or murmur. ABDOMEN: Soft. Positive bowel sounds. Nontender. LUNGS: Clear bilaterally. No rhonchi or rales. SKIN: No rash. Sacral wound is reviewed. Does not seem to be acutely infected, but it has some tunnelling. MUSCULOSKELETAL: No effusion. Bilateral leg and feet had redness and warmth consistent with cellulitis. PERIPHERAL VASCULAR: No gangrene. GENITOURINARY: She has a chronic Tinajero. Urine is cloudy. LINE SITES: Without phlebitis. NEUROLOGIC: She has paraplegia. Alert, responsive, and oriented x3. LABORATORY DATA: Laboratory data as follows. Potassium 2.6. White count 7.8, hemoglobin 13.0, and creatinine 1.0. Urinalysis had 3+ leukocyte esterase and too many to count white blood cells. Urine culture and other cultures are pending. Labs for CD4 and viral load have been ordered for tomorrow. IMAGING STUDIES: There are no imaging studies. ASSESSMENT AND PLAN: 1. The patient has bilateral leg and foot cellulitis with redness and warmth. The patient has a urinary tract infection with positive UA, likely complicated urinary tract infection. The patient also has a sacral wound, questionable infected. I agree with vancomycin and Zosyn for now for MRSA gram-negative coverage. Continue vancomycin and Zosyn for bilateral leg and foot cellulitis and UTI. Check urine culture. Watch the patient's cellulitis clinically. The patient to be evaluated by Surgery for sacral wound. Vancomycin and Zosyn for MRSA and gram-negative coverage. 2. The patient has a history of HIV and AIDS. Of note, Stribild is not available at [facility], discussed with nursing staff and pharmacy. The patient can take her medications from home and I told the patient if possible to get her medications from home, which includes the Stribild. We will check CD4 and viral load for the history of HIV and AIDS also. 3. Skin care protocol. 4. The patient has a history of atrial fibrillation. 5. CVA, TIA. 6. Paraplegia. 7. Psychiatric disease. 8. Renal disease. 9. Quadriplegia. 10. Neurogenic bladder and chronic Tinajero. 11. Atrial fibrillation. 12. Allergies are negative. 13. Social history is negative. 14. Family history noncontributory. 15. MAR was noted. 16. Case discussed with the patient's RN. 17. Continue treatment with primary consultants. 18. Noted and record were noted. Placido Butterfield M.D. DR: SAVANNA JOB#: [id number] CC: [email or web address]
[2018-06-19] MEDS: Vancomycin 750mg/NS 275ml IVPB SCH ×4 (03:05→15:50)
[2018-06-19] MEDS: Morphine Sulfate 4mg/ml Inj (IV/IM USE ONLY) IVP PRN ×3 (04:18→17:26)
[2018-06-19 07:04] LABS: BASOPHILS % (AUTO) 0.5 % (0.0-2.0); EOSINOPHILS % (AUTO) 2.6 % (0.0-3.0); HEMATOCRIT 35.2 % (37.0-47.0); HEMOGLOBIN 11.9 G/DL (12.0-16.0); LYMPHOCYTES % (AUTO) 25.2 % (20.0-45.0); MEAN CORPUSCULAR VOLUME 85 FL (80-99); MONOCYTES % (AUTO) 6.9 % (1.0-10.0); NEUTROPHILS % (AUTO) 64.8 % (45.0-75.0); PLATELET COUNT 353 K/UL (150-450); RED BLOOD COUNT 4.13 M/UL (4.20-5.40); RED CELL DISTRIBUTION WIDTH 13.8 % (11.6-14.8); WHITE BLOOD COUNT 6.8 K/UL (4.8-10.8)
[2018-06-19 07:11] LABS: ALANINE AMINOTRANSFERASE 15 U/L (12-78); ALBUMIN 2.8 G/DL (3.4-5.0); ALBUMIN/GLOBULIN RATIO 0.7 (1.0-2.7); ALKALINE PHOSPHATASE 80 U/L (46-116); ANION GAP 6 mmol/L (5-15); ASPARTATE AMINO TRANSFERASE 14 U/L (15-37); BILIRUBIN,TOTAL 0.9 MG/DL (0.2-1.0); CALCIUM 9.2 MG/DL (8.5-10.1); CARBON DIOXIDE 33 MMOL/L (21-32); CHLORIDE 103 MMOL/L (98-107); CREATININE 0.9 MG/DL (0.55-1.30); POTASSIUM 3.1 MMOL/L (3.5-5.1); SODIUM 142 MMOL/L (136-145)
[2018-06-19 07:27] LABS: BLOOD UREA NITROGEN 13 mg/dL (7-18)
--- NOTE | 2018-06-19 07:32 | NUR ---
HAND-OFF: Report given to HALI Cronin.
--- NOTE | 2018-06-19 07:44 | NUR ---
NURSE NOTES: Received report from HALI Felix. Pt is in the bed, sleeping. On the RA. No s/s of respiratory distress or discomfort noted. Bed is in the lowest position. Call light is within the reach. Will continue to monitor
[2018-06-19 08:00] VITALS: BP 112/61
[2018-06-19] MEDS: Docusate 250mg cap ORAL SCH (08:12)
[2018-06-19] MEDS: Midodrine 10mg tab ORAL SCH ×3 (08:13→17:26)
[2018-06-19] MEDS: Ascorbic Acid 500mg tab ORAL SCH ×2 (08:14→17:26)
[2018-06-19] MEDS: Xarelto 15mg tab ORAL SCH (08:14)
[2018-06-19] MEDS: Furosemide 40mg tab ORAL SCH (08:14)
[2018-06-19] MEDS ORDERED: Lidocaine 1% Plain 30 ml INJ PRN (08:15)
[2018-06-19] MEDS ORDERED: Heparin 2000 units/Ns 1000ml INJ PRN (08:15)
[2018-06-19] MEDS: Milk of Magnesia 30ml Ud ORAL SCH (08:16)
[2018-06-19] MEDS: MS Contin 15mg tab ORAL SCH ×2 (08:16→21:58)
--- NOTE | 2018-06-19 09:02 | NUR ---
NURSE NOTES: Came in to the Pt's room along with the wound care nurse in order to take a pictures of BLE and change dressings. Pt was refusing. Saying that she is in pain and requesting pain medication immediately. Using foul language, very mean and demanding. Informed MS simon was just administered and next dose of MOrphine IV is scheduled @1000. Pt s refusing to understand and follow command. Refusing dressing change.
--- NOTE | 2018-06-19 09:52 | NUR ---
NURSE NOTES: Pt is off the floor for the PICC placement
--- NOTE | 2018-06-19 11:01 | NUR ---
NURSE NOTES: Pt is back tot he floor via gurney. Demanding pain medication. Provided. Refusing dressing on the feed to be change. Tried to explain the benefits, pt is still refusing
--- NOTE | 2018-06-19 11:30 | Diagnostic Imaging Report ---
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 The left upper extremity was prepped with alcohol. All elements of maximal sterile barrier technique were followed including usage of a cap, mask, sterile gown, sterile gloves, hand hygiene and a large sterile sheet. Sonographic evaluation of the upper extremity was performed demonstrating a patent and compressible basilic vein. Access was obtained under real-time ultrasound guidance (with utilization of sterile gel and sterile probe cover) and digital image was saved and archived. An .018 wire was introduced. Needle exchanged for a 5 Irish peel-away sheath. Measurements were obtained. A 5 Irish dual-lumen Power PICC line catheter was cut to 50 cm and introduced over the wire. Peel-away sheath and wire were removed.Catheter was secured to the skin using 2-0 Prolene suture. Both ports aspirate and flush easily. Fluoroscopic images show distal tip in the superior vena cava. Total fluoroscopic time 19.7 seconds. Impression: Successful placement of an upper extremity PICC line catheter
--- NOTE | 2018-06-19 12:16 | Consultation ---
History of Present Illness General Date patient seen: Jun 19, 2018 Chief Complaint: Female Urogenital Problems Reason for Consultation: multiple wounds Present Illness HPI 57 year old female with multiple medical comorbidities including lower extremity edema, hx sacral decubitus, HIV, chronic pain presented with worsening wounds. Currently admitted for medical care. Surgery called to evaluate and assist with care and management. patient seen, chart reviewed, patient examined. states lots of pain and needs her pain meds. Allergies: Coded Allergies: No Known Allergies (Unverified , 06/17/18) Medication History Scheduled Aripiprazole* (Abilify*), 10 MG ORAL DAILY, (Reported) Ascorbic Acid* (Vitamin C*), 500 MG ORAL TWICE A DAY, (Reported) Baclofen* (Baclofen*), 10 MG ORAL THREE TIMES A DAY, (Reported) Bisacodyl* (Dulcolax*), 20 MG ORAL ONCE, (Reported) Cephalexin* (Keflex*), 250 MG ORAL EVERY 6 HOURS, (Reported) Docusate Sodium (Docusate Sodium), 250 MG ORAL DAILY, (Reported) Ertapenem (Invanz), 1 GM IM DAILY, (Reported) Esomeprazole Magnesium (Nexium), 40 MG ORAL DAILY, (Reported) Furosemide* (Lasix*), 40 MG ORAL DAILY, (Reported) Gabapentin (Neurontin), 300 MG ORAL THREE TIMES A DAY, (Reported) Magnesium Hydroxide (Milk of Magnesia), 30 ML ORAL DAILY, (Reported) Midodrine (Midodrine HCl), 10 MG ORAL THREE TIMES A DAY, (Reported) Morphine Sulfate (Morphine Sulfate), 15 MG ORAL EVERY 12 HOURS, (Reported) Potassium Chloride (Potassium Chloride), 20 MEQ ORAL DAILY, (Reported) Quetiapine Fumarate* (Seroquel*), 25 MG ORAL DAILY, (Reported) Tizanidine Hcl (Zanaflex), 4 MG ORAL THREE TIMES A DAY, (Reported) Scheduled PRN Acetaminophen* (Acetaminophen 325MG Tablet*), 325 MG ORAL Q6H PRN for For Pain, (Reported) Diphenhydramine Hcl* (Diphenhydramine Hcl*), 25 MG ORAL Q6H PRN for Itching, ( Reported) Ondansetron (Zofran), 4 MG ORAL Q6H PRN for Nausea & Vomiting, (Reported) Oxycodone/Acetaminophen 5-325* (Percocet 5-325 Mg Tablet*), 1 TAB ORAL Q6H PRN for For Pain, (Reported) Miscellaneous Medications Cranberry Fruit (Cranberry), 500 MG PO, (Reported) Diphenhydramine HCl (Benadryl Itch Stopping), 118 ML TP, (Reported) Elvitegr/Cobicist/Emtric/Tenof (Stribild Tablet), 1 EACH PO, (Reported) Enoxaparin (Lovenox), 40 MG SUBQ, (Reported) Ferrous Sulfate (Ferrous Sulfate), 325 MG ORAL, (Reported) Melatonin (Melatonin), 3 MG PO, (Reported) Rivaroxaban (Xarelto), 15 MG ORAL, (Reported) Zinc (Zinc), 50 MG ORAL, (Reported) Patient History Limited by: medical condition History Provided By: Patient, PMD Healthcare decision maker Resuscitation status Full Code Advanced Directive on File Past Medical/Surgical History Past Medical/Surgical History: (1) Hematuria (2) UTI (urinary tract infection) (3) Bilateral lower leg cellulitis (4) Bipolar 1 disorder Review of Systems All Other Systems: negative except mentioned in HPI Physical Exam General Appearance: no apparent distress, alert Lines, tubes and drains: PICC HEENT: mucous membranes moist Neck: normal inspection Respiratory/Chest: normal breath sounds, no respiratory distress Cardiovascular/Chest: regular rhythm Abdomen: soft, no organomegaly, no mass Extremities: other Skin Exam: other Last 24 Hour Vital Signs Date Time Temp Pulse Resp B/P (MAP) Pulse Ox O2 Delivery O2 Flow Rate FiO2 06/19/18 09:00 Room Air 06/19/18 08:00 98.1 94 20 112/61 (78) 99 06/18/18 21:00 Room Air Intake and Output 06/18/18 06/19/18 19:00 07:00 Intake Total 1022.500 ml Output Total 2100 ml Balance 1022.500 ml -2100 ml Intake Oral 720 ml IV Total 302.500 ml Output Urine Total 2100 ml # Bowel Movements 3 Laboratory Tests Test 06/19/18 05:20 White Blood Count Pending Red Blood Count 4.13 M/UL (4.20-5.40) L Hemoglobin 11.9 G/DL (12.0-16.0) L Hematocrit 35.2 % (37.0-47.0) L Mean Corpuscular Volume 85 FL (80-99) Mean Corpuscular Hemoglobin 28.8 PG (27.0-31.0) Mean Corpuscular Hemoglobin Concent 33.7 G/DL (32.0-36.0) Red Cell Distribution Width 13.8 % (11.6-14.8) Platelet Count 353 K/UL (150-450) Mean Platelet Volume 5.3 FL (6.5-10.1) L Neutrophils (%) (Auto) 64.8 % (45.0-75.0) Lymphocytes (%) (Auto) 25.2 % (20.0-45.0) Monocytes (%) (Auto) 6.9 % (1.0-10.0) Eosinophils (%) (Auto) 2.6 % (0.0-3.0) Basophils (%) (Auto) 0.5 % (0.0-2.0) Lymphocytes Pending Sodium Level 142 MMOL/L (136-145) Potassium Level 3.1 MMOL/L (3.5-5.1) L Chloride Level 103 MMOL/L (98-107) Carbon Dioxide Level 33 MMOL/L (21-32) H Anion Gap 6 mmol/L (5-15) Blood Urea Nitrogen 13 mg/dL (7-18) Creatinine 0.9 MG/DL (0.55-1.30) Estimat Glomerular Filtration Rate > 60 mL/min (>60) Glucose Level 111 MG/DL (74-106) H Calcium Level 9.2 MG/DL (8.5-10.1) Total Bilirubin 0.9 MG/DL (0.2-1.0) Aspartate Amino Transf (AST/SGOT) 14 U/L (15-37) L Alanine Aminotransferase (ALT/SGPT) 15 U/L (12-78) Alkaline Phosphatase 80 U/L (46-116) Total Protein 7.1 G/DL (6.4-8.2) Albumin 2.8 G/DL (3.4-5.0) L Globulin 4.3 g/dL Albumin/Globulin Ratio 0.7 (1.0-2.7) L Percent CD3 Cells Pending Absolute CD3 Count Pending Percent CD4 Cells Pending Absolute CD4 Count Pending T-Lymphocyte CD4/CD8 Ratio Pending Percent CD8 Cells Pending Absolute CD8 Count Pending HIV-1 RNA (PCR) log10 Value Pending HIV-1 RNA Ultraquantitative (PCR) Pending Height (Feet): 5 Height (Inches): 4.00 Weight (Pounds): 220 Medications Current Medications Medications (Trade) Dose Ordered Sig/Kevin Route PRN Reason Start Time Stop Time Status Last Admin Dose Admin Acetaminophen (Tylenol) 325 mg Q6H PRN ORAL Mild Pain (Pain Scale 1-3) 06/18/18 09:00 07/18/18 08:59 Ascorbic Acid (Vitamin C) 500 mg TWICE A DAY ORAL 06/18/18 09:00 07/18/18 08:59 06/19/18 08:14 Baclofen (Lioresal) 10 mg THREE TIMES A DAY ORAL 06/18/18 09:00 07/18/18 08:59 06/19/18 08:14 Bisacodyl (Dulcolax) 20 mg DAILYPRN PRN ORAL Constipation 06/18/18 09:00 07/18/18 08:59 Chlorhexidine Gluconate (Mariah-Hex 2%) 1 applic DAILY@2000 TOPIC 06/19/18 20:00 07/19/18 19:59 Dextrose (Dextrose 50%) 25 ml Q30M PRN IV Hypoglycemia 06/18/18 09:00 07/18/18 08:59 Dextrose (Dextrose 50%) 50 ml Q30M PRN IV Hypoglycemia 06/18/18 09:00 07/18/18 08:59 Diphenhydramine HCl (Benadryl) 25 mg Q6H PRN ORAL Itching 06/18/18 09:00 07/18/18 08:59 06/18/18 10:04 Docusate Sodium (Colace) 250 mg DAILY ORAL 06/18/18 09:00 07/18/18 08:59 Furosemide (Lasix) 40 mg DAILY ORAL 06/18/18 09:00 07/18/18 08:59 06/19/18 08:14 Gabapentin (Neurontin) 300 mg THREE TIMES A DAY ORAL 06/18/18 09:00 07/18/18 08:59 06/19/18 08:14 Heparin Sodium/ Sodium Chloride (Heparin 2000 units/Ns 1000ml premix) 2,000 unit ONCE PRN INJ picc line placement 06/19/18 08:15 06/21/18 08:14 Lidocaine HCl (Xylocaine 1% 30ml) 30 ml ONCE PRN INJ picc line placement 06/19/18 08:15 06/21/18 08:14 Lorazepam (Ativan) 2 mg Q6H PRN ORAL For Anxiety 06/18/18 18:00 06/25/18 17:59 Magnesium Hydroxide (Mom) 30 ml DAILY ORAL 06/18/18 09:00 07/18/18 08:59 Midodrine (Pro-Amatine) 10 mg THREE TIMES A DAY ORAL 06/18/18 09:00 07/18/18 08:59 06/19/18 08:13 Morphine Sulfate (MS Contin) 15 mg EVERY 12 HOURS ORAL 06/18/18 09:00 06/25/18 08:59 06/19/18 08:16 Morphine Sulfate (Morphine Sulfate) 2 mg EVERY 6 HOURS PRN IVP Moderate Pain (Pain Scale 4-6) 06/18/18 03:45 06/25/18 03:44 Morphine Sulfate (Morphine Sulfate) 4 mg EVERY 6 HOURS PRN IVP Severe Pain (Pain Scale 7-10) 06/18/18 03:45 06/25/18 03:44 06/19/18 11:06 Ondansetron HCl (Zofran) 4 mg Q6H PRN ORAL Nausea & Vomiting 06/18/18 09:00 07/18/18 08:59 Oxycodone/ Acetaminophen (Percocet 5-325) 1 tab Q6H PRN ORAL Moderate Pain (Pain Scale 4-6) 06/18/18 09:00 06/25/18 08:59 Patient Own Medication (Patient's Own Med) 1 ea DAILY ORAL 06/19/18 09:00 07/19/18 08:59 UNV Piperacillin Sod/ Tazobactam Sod 3.375 gm/Dextrose 110 ml @ 27.5 mls/hr Q8H IVPB 06/18/18 08:00 06/25/18 07:59 06/19/18 08:10 Quetiapine Fumarate (SEROquel) 100 mg BEDTIME ORAL 06/18/18 21:00 07/18/18 20:59 Rivaroxaban (Xarelto) 15 mg DAILY ORAL 06/18/18 09:00 07/18/18 08:59 06/19/18 08:14 Vancomycin HCl (Vanco rx to dose) 1 ea DAILY PRN MISC Per rx protocol 06/18/18 12:15 07/18/18 12:14 Vancomycin HCl 750 mg/Sodium Chloride 275 ml @ 183.333 mls/hr Q12H IVPB 06/18/18 15:00 06/23/18 14:59 06/19/18 03:05 Assessment/Plan Problem List: (1) Stage 4 skin ulcer of sacral region Assessment & Plan: chronic appearing sacral decubitus ulcer with multiple areas of healing and skin breakdown. area of stage 4 with tracking in superior direction. some minimal drainage. no foul odor. periwound erythema but no induration. states she has had it for long time and is painful. unable to participate in exam because of pain -no acute surgical intervention planed -limited exam given pain -will plan to reexamine soon -for now turn q2h -off load pressure -air mattress -apply skin protectant and foam dressings thank you ICD Codes: L98.429 - Non-pressure chronic ulcer of back with unspecified severity SNOMED: 78476572, [id number] (2) Bilateral lower leg cellulitis Assessment & Plan: bilateral lower extremity cellulitis with edema, tenderness , erythema. no fluctuance or abscess. no drainage -keep legs elevated -apply skin protectant, abd and wrap -venous duplex thank you ICD Codes: L03.116 - Cellulitis of left lower limb; L03.115 - Cellulitis of right lower limb SNOMED: 055879325 Juwan Malcolm Jun 19, 2018 12:16
--- NOTE | 2018-06-19 12:20 | General Progress Note ---
Assessment/Plan Assessment/Plan #Bilateral LE cellulitis and drainage -continue inpatient level of care -continue IV antibiotics with vancomycin and Zosyn -local wound care -Surgery consulted -ID following #Chronic Tinajero with pyuria and hematuria, possible catheter related UTI -continue antibiotics -followup cultures #Chronic sacral pressure ulcer -Surgery consulted #Hypokalemia -improved -replace and repeat BMP #Chronic pain #Narcotic dependance -resume outpatient pain regimen #History of atrial fibrillation -continue Xarelto #morbid obesity #paraplegia #neurogenic bladder -continue supportive care Subjective Date patient seen: Jun 19, 2018 Time patient seen: 09:45 Constitutional: Denies: chills, diaphoresis Cardiovascular: Denies: chest pain, edema Respiratory: Denies: cough, shortness of breath Gastrointestinal/Abdominal: Denies: abdomen distended, abdominal pain Allergies: Coded Allergies: No Known Allergies (Unverified , 06/17/18) Subjective Medicine follow up for bilateral LE cellulitis and wounds, sacral pressure ulcer. No new complaints. She feels her legs are improving with antibiotics. Objective Last 24 Hour Vital Signs Date Time Temp Pulse Resp B/P (MAP) Pulse Ox O2 Delivery O2 Flow Rate FiO2 06/19/18 09:00 Room Air 06/19/18 08:00 98.1 94 20 112/61 (78) 99 06/18/18 21:00 Room Air Intake and Output 06/18/18 06/19/18 19:00 07:00 Intake Total 1022.500 ml Output Total 2100 ml Balance 1022.500 ml -2100 ml Intake Oral 720 ml IV Total 302.500 ml Output Urine Total 2100 ml # Bowel Movements 3 Laboratory Tests 06/19/18 05:20: White Blood Count [Pending], Red Blood Count 4.13L, Hemoglobin 11.9L, Hematocrit 35.2L, Mean Corpuscular Volume 85, Mean Corpuscular Hemoglobin 28.8, Mean Corpuscular Hemoglobin Concent 33.7, Red Cell Distribution Width 13.8, Platelet Count 353, Mean Platelet Volume 5.3L, Neutrophils (%) (Auto) 64.8, Lymphocytes (%) (Auto) 25.2, Monocytes (%) (Auto) 6.9, Eosinophils (%) (Auto) 2.6, Basophils (%) (Auto) 0.5, Lymphocytes [Pending], Sodium Level 142, Potassium Level 3.1L, Chloride Level 103, Carbon Dioxide Level 33H, Anion Gap 6 , Blood Urea Nitrogen 13, Creatinine 0.9, Estimat Glomerular Filtration Rate > 60, Glucose Level 111H, Calcium Level 9.2, Total Bilirubin 0.9, Aspartate Amino Transf (AST/SGOT) 14L, Alanine Aminotransferase (ALT/SGPT) 15, Alkaline Phosphatase 80, Total Protein 7.1, Albumin 2.8L, Globulin 4.3, Albumin/Globulin Ratio 0.7L, Percent CD3 Cells [Pending], Absolute CD3 Count [Pending], Percent CD4 Cells [Pending], Absolute CD4 Count [Pending], T-Lymphocyte CD4/CD8 Ratio [ Pending], Percent CD8 Cells [Pending], Absolute CD8 Count [Pending], HIV-1 RNA ( PCR) log10 Value [Pending], HIV-1 RNA Ultraquantitative (PCR) [Pending] Height (Feet): 5 Height (Inches): 4.00 Weight (Pounds): 220 General Appearance: no apparent distress, alert EENT: normal ENT inspection Neck: non-tender, normal alignment Cardiovascular: normal peripheral pulses, normal rate Respiratory/Chest: chest wall non-tender, lungs clear Abdomen: normal bowel sounds, non tender Extremities: other - Legs in dressing Jitendra Sharma MD Jun 19, 2018 12:20
--- NOTE | 2018-06-19 14:47 | NUR ---
NURSE NOTES:WOUND CARE NOTES:This nurse and primary nurse of this pt attempted to assess wounds this a.m. Soiled drsgs removed from both lower ext and both lower ext cleansed with Saline .Pt increasingly became more verbally abusive to staff. Pt first yelled at staff that staff were removing her tattoos from her leg when cleansing legs,then shortly after accused staff of not cleansing legs .Pt then screamed at staff to "Get the F... out of here.You don't know to do a Fu....g thing " .Primary nurse in room and aware pt declined to have wounds assessed.
[2018-06-19 16:00] VITALS: BP 109/65
--- NOTE | 2018-06-19 19:40 | NUR ---
HAND-OFF: Report given to HALI Flower.
--- NOTE | 2018-06-19 19:52 | NUR ---
NURSE NOTES: Pt received asleep, bed in lowest position, yan catheter, call light within reach, able to make needs known.
[2018-06-19 20:00] VITALS: BP 97/59
--- NOTE | 2018-06-19 23:37 | Cardiology Report ---
APPROVED REPORT EKG Measurement Heart [id number] Normal sinus rhythm with sinus arrhythmia Low voltage QRS Borderline ECG
[2018-06-20] VITALS: BP 111/61
[2018-06-20] MEDS: Piperacillin/Tazobactam 3.375 GM in D5W 110 ML IVPB SCH ×2 (01:19→08:20)
--- NOTE | 2018-06-20 01:30 | NUR ---
NURSE NOTES: Patient refused picture of blistery red wound medial to left knee. Addendum: 06/21/18 at 0646 by Reta Saucedo RN WRONG DATE & TIME
[2018-06-20] MEDS: Dyna-Hex 2% Top Sol 2oz TOPIC SCH ×2 (03:23→20:00)
[2018-06-20] MEDS: Vancomycin 750mg/NS 275ml IVPB SCH ×4 (05:24→17:14)
--- NOTE | 2018-06-20 07:49 | NUR ---
HAND-OFF: Report given to HALI [place].
[2018-06-20 08:00] VITALS: BP 110/49
--- NOTE | 2018-06-20 08:00 | NUR ---
NURSE NOTES: Patient is awake and alert,sitting up in bed and eating breakfast,bilateral leg dressing are intact,patient complaint of pain,will medicate as ordered.Call light within reach.
[2018-06-20] MEDS: Morphine Sulfate 4mg/ml Inj (IV/IM USE ONLY) IVP PRN ×3 (08:27→21:13)
[2018-06-20] MEDS: Docusate 250mg cap ORAL SCH (09:00)
[2018-06-20] MEDS: Midodrine 10mg tab ORAL SCH ×3 (09:30→18:29)
[2018-06-20] MEDS: MS Contin 15mg tab ORAL SCH ×3 (09:30→23:13)
[2018-06-20] MEDS: Xarelto 15mg tab ORAL SCH (09:31)
[2018-06-20] MEDS: Ascorbic Acid 500mg tab ORAL SCH ×2 (09:31→18:29)
[2018-06-20] MEDS: Furosemide 40mg tab ORAL SCH (09:35)
[2018-06-20] MEDS: Milk of Magnesia 30ml Ud ORAL SCH (09:35)
[2018-06-20 10:20] LABS: ANION GAP 3 mmol/L (5-15); BLOOD UREA NITROGEN 13 mg/dL (7-18); CALCIUM 8.9 MG/DL (8.5-10.1); CARBON DIOXIDE 36 MMOL/L (21-32); CHLORIDE 107 MMOL/L (98-107); CREATININE 0.7 MG/DL (0.55-1.30); POTASSIUM 3.5 MMOL/L (3.5-5.1); SODIUM 146 MMOL/L (136-145)
--- NOTE | 2018-06-20 10:20 | General Progress Note ---
Assessment/Plan Assessment/Plan #Bilateral LE cellulitis and drainage -continue inpatient level of care -continue IV antibiotics -local wound care -Surgery consult appreciated -ID following #Chronic Tinajero with pyuria and hematuria, possible catheter related UTI -culture growing resistant Pseudomonas -will discuss changing antibiotics with ID #Chronic sacral pressure ulcer -Surgery eval appreciated #Hypokalemia -labs pending today #Chronic pain #Narcotic dependance -resume outpatient pain regimen #History of atrial fibrillation -continue Xarelto #morbid obesity #paraplegia #neurogenic bladder -continue supportive care Subjective Date patient seen: Jun 20, 2018 Time patient seen: 10:00 Constitutional: Denies: chills, fever Cardiovascular: Denies: chest pain, lightheadedness Respiratory: Denies: cough, shortness of breath Gastrointestinal/Abdominal: Denies: abdomen distended, abdominal pain Neurologic/Psychiatric: Denies: anxiety Allergies: Coded Allergies: No Known Allergies (Unverified , 06/17/18) Subjective Medicine follow up for bilateral LE cellulitis and wounds, sacral pressure ulcer. No new complaints. Continues to improve symptomatically. Objective Last 24 Hour Vital Signs Date Time Temp Pulse Resp B/P (MAP) Pulse Ox O2 Delivery O2 Flow Rate FiO2 06/20/18 00:00 98.2 93 19 111/61 (78) 98 06/19/18 21:00 Room Air 06/19/18 20:00 99.5 80 19 97/59 (72) 93 06/19/18 16:00 97.9 92 20 109/65 (80) 99 Intake and Output 06/19/18 06/20/18 19:00 07:00 Intake Total 662.500 ml 932.5 ml Output Total 1800 ml 2900 ml Balance -1137.500 ml -1967.5 ml Intake Oral 250 ml 850 ml IV Total 412.500 ml 82.5 ml Output Urine Total 1800 ml 2900 ml # Bowel Movements 1 Laboratory Tests 06/20/18 02:05: Sodium Level [Pending], Potassium Level [Pending], Chloride Level [Pending], Carbon Dioxide Level [Pending], Blood Urea Nitrogen [Pending], Creatinine [ Pending], Estimat Glomerular Filtration Rate [Pending], Glucose Level [Pending] , Calcium Level [Pending], Vancomycin Level Trough 10.5 Height (Feet): 5 Height (Inches): 4.00 Weight (Pounds): 220 General Appearance: no apparent distress, alert Neck: normal alignment, supple Cardiovascular: normal rate, regular rhythm Respiratory/Chest: lungs clear, normal breath sounds Abdomen: non tender Extremities: other - Bilat LE dressing intact Neurologic: alert, oriented x 3 Jitendra Sharma MD Jun 20, 2018 10:20
[2018-06-20] MEDS ORDERED: Ciprofloxacin 500mg tab ORAL SCH (10:30)
[2018-06-20 12:00] VITALS: BP 117/57
--- NOTE | 2018-06-20 12:44 | Surgery Progress Note ---
Surgery Progress Note Subjective Additional Comments no acute events. stable. comfortable. edema improving Objective Last 24 Hour Vital Signs Date Time Temp Pulse Resp B/P (MAP) Pulse Ox O2 Delivery O2 Flow Rate FiO2 06/20/18 12:00 97.7 95 20 117/57 (77) 96 06/20/18 09:00 Room Air 06/20/18 08:00 98.2 100 20 110/49 (69) 97 06/20/18 00:00 98.2 93 19 111/61 (78) 98 06/19/18 21:00 Room Air 06/19/18 20:00 99.5 80 19 97/59 (72) 93 06/19/18 16:00 97.9 92 20 109/65 (80) 99 I&O Intake and Output 06/19/18 06/20/18 19:00 07:00 Intake Total 662.500 ml 932.5 ml Output Total 1800 ml 2900 ml Balance -1137.500 ml -1967.5 ml Intake Oral 250 ml 850 ml IV Total 412.500 ml 82.5 ml Output Urine Total 1800 ml 2900 ml # Bowel Movements 1 Dressing: saturated Wound: other Drains: other Cardiovascular: RSR Respiratory: clear Abdomen: soft, present bowel sounds, non-distended Extremities: edema, tenderness, other Laboratory Tests Test 06/20/18 02:05 Sodium Level 146 MMOL/L (136-145) H Potassium Level 3.5 MMOL/L (3.5-5.1) Chloride Level 107 MMOL/L (98-107) Carbon Dioxide Level 36 MMOL/L (21-32) H Anion Gap 3 mmol/L (5-15) L Blood Urea Nitrogen 13 mg/dL (7-18) Creatinine 0.7 MG/DL (0.55-1.30) Estimat Glomerular Filtration Rate > 60 mL/min (>60) Glucose Level 122 MG/DL (74-106) H Calcium Level 8.9 MG/DL (8.5-10.1) Vancomycin Level Trough 10.5 ug/mL (5.0-12.0) Plan Problems: (1) Stage 4 skin ulcer of sacral region Assessment & Plan: chronic appearing sacral decubitus ulcer with multiple areas of healing and skin breakdown. area of stage 4 with tracking in superior direction. some minimal drainage. no foul odor. periwound erythema but no induration. states she has had it for long time and is painful. unable to participate in exam because of pain -no acute surgical intervention planed -limited exam given pain -will plan to reexamine soon -for now turn q2h -off load pressure -air mattress -apply skin protectant and foam dressings thank you (2) Bilateral lower leg cellulitis Assessment & Plan: bilateral lower extremity cellulitis with edema, tenderness , erythema. no fluctuance or abscess. no drainage -keep legs elevated -apply skin protectant, abd and wrap -venous duplex thank you Juwan Malcolm Jun 20, 2018 12:43
[2018-06-20] MEDS: metroNIDAZOLE 500mg tab ORAL SCH ×2 (14:07→21:14)
--- NOTE | 2018-06-20 15:23 | Infectious Diseases Prog Note ---
Assessment/Plan Assessment/Plan ASSESSMENT AND PLAN: 1. bilateral leg cellulitis, pseudomonas uti - vancomycin, cipro and flagyl - monitor labs - cellulitis improved 2. hiv, hx of aids - [id number], vl pending, stribild not available at [facility], pt to f/u with primary HIV MD as outpatient 3. wounds - skin care protocol. 4. The patient has a history of atrial fibrillation. 5. CVA, TIA. 6. Paraplegia. 7. Psychiatric disease. 8. Renal disease. 9. Quadriplegia. 10. Neurogenic bladder and chronic Yan. 11. Atrial fibrillation. 12. Allergies are negative. 13. Social history is negative. 14. Family history noncontributory. 15. MAR was noted. 16. Case discussed with the patient's RN. 17. Continue treatment with primary consultants. 18. Noted and record were noted. Subjective Constitutional: Denies: fever HEENT: Denies: congestion Respiratory: Denies: shortness of breath Cardiovascular: Denies: chest pain Gastrointestinal/Abdominal: Denies: nausea, vomiting, diarrhea Genitourinary: Denies: dysuria, hematuria, frequency Neurologic: Denies: headache Psychiatric: Denies: depression Skin: Denies: rash Hematologic: Denies: bleeding Musculoskeletal: Reports: pain - leg pain controlled Allergies: Coded Allergies: No Known Allergies (Unverified , 06/17/18) Objective Vital Signs Last 24 Hour Vital Signs Date Time Temp Pulse Resp B/P (MAP) Pulse Ox O2 Delivery O2 Flow Rate FiO2 06/20/18 12:00 97.7 95 20 117/57 (77) 96 06/20/18 09:00 Room Air 06/20/18 08:00 98.2 100 20 110/49 (69) 97 06/20/18 00:00 98.2 93 19 111/61 (78) 98 06/19/18 21:00 Room Air 06/19/18 20:00 99.5 80 19 97/59 (72) 93 06/19/18 16:00 97.9 92 20 109/65 (80) 99 Height (Feet): 5 Height (Inches): 4.00 Weight (Pounds): 220 General Appearance: no acute distress HEENT: normocephalic, atraumatic, anicteric, mucous membranes moist, EOMI, pharynx normal, supple, no JVD Respiratory/Chest: lungs clear, normal breath sounds, no respiratory distress, no accessory muscle use Cardiovascular: normal rate, regular rhythm, no gallop/murmur, no JVD Abdomen: normal bowel sounds, soft, non tender, no organomegaly, non distended Genitourinary: other - no yan Extremities: no cyanosis, other - leg examined with RN - cellulitis and redness much better, wounds stable Skin: no rash Neurologic/Psychiatric: 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, alert, oriented x 3, responsive Lymphatic: no neck adenopathy Musculoskeletal: no effusion Objective none Microbiology Date/Time Source Procedure Growth Status 06/17/18 23:55 Blood Blood Culture - Preliminary NO GROWTH AFTER 24 HOURS Resulted 06/17/18 23:35 Blood Blood Culture - Preliminary NO GROWTH AFTER 24 HOURS Resulted 06/18/18 00:00 Urine,Clean Catch Urine Culture - Final Pseudomonas Aeruginosa Complete Labs Test 06/17/18 23:50 06/18/18 00:00 06/18/18 05:30 06/19/18 05:20 White Blood Count 8.6 K/UL (4.8-10.8) 7.8 K/UL (4.8-10.8) 7.4 x10E3/uL (3.4-10.8) Red Blood Count 4.62 M/UL (4.20-5.40) 4.56 M/UL (4.20-5.40) 4.13 M/UL (4.20-5.40) Hemoglobin 13.3 G/DL (12.0-16.0) 13.0 G/DL (12.0-16.0) 11.9 G/DL (12.0-16.0) Hematocrit 39.1 % (37.0-47.0) 38.6 % (37.0-47.0) 35.2 % (37.0-47.0) Mean Corpuscular Volume 84 FL (80-99) 85 FL (80-99) 85 FL (80-99) Mean Corpuscular Hemoglobin 28.7 PG (27.0-31.0) 28.6 PG (27.0-31.0) 28.8 PG (27.0-31.0) Mean Corpuscular Hemoglobin Concent 34.0 G/DL (32.0-36.0) 33.8 G/DL (32.0-36.0) 33.7 G/DL (32.0-36.0) Red Cell Distribution Width 13.4 % (11.6-14.8) 13.7 % (11.6-14.8) 13.8 % (11.6-14.8) Platelet Count 389 K/UL (150-450) 371 K/UL (150-450) 353 K/UL (150-450) Mean Platelet Volume 5.7 FL (6.5-10.1) 5.4 FL (6.5-10.1) 5.3 FL (6.5-10.1) Neutrophils (%) (Auto) 64.9 % (45.0-75.0) 67.3 % (45.0-75.0) 64.8 % (45.0-75.0) Lymphocytes (%) (Auto) 24.5 % (20.0-45.0) 23.7 % (20.0-45.0) 25.2 % (20.0-45.0) Monocytes (%) (Auto) 7.6 % (1.0-10.0) 6.8 % (1.0-10.0) 6.9 % (1.0-10.0) Eosinophils (%) (Auto) 2.4 % (0.0-3.0) 1.8 % (0.0-3.0) 2.6 % (0.0-3.0) Basophils (%) (Auto) 0.6 % (0.0-2.0) 0.5 % (0.0-2.0) 0.5 % (0.0-2.0) Sodium Level 139 MMOL/L (136-145) 139 MMOL/L (136-145) 142 MMOL/L (136-145) Potassium Level 3.0 MMOL/L (3.5-5.1) 2.6 MMOL/L (3.5-5.1) 3.1 MMOL/L (3.5-5.1) Chloride Level 100 MMOL/L (98-107) 99 MMOL/L (98-107) 103 MMOL/L (98-107) Carbon Dioxide Level 34 MMOL/L (21-32) 34 MMOL/L (21-32) 33 MMOL/L (21-32) Anion Gap 5 mmol/L (5-15) 6 mmol/L (5-15) 6 mmol/L (5-15) Blood Urea Nitrogen 13 mg/dL (7-18) 13 mg/dL (7-18) 13 mg/dL (7-18) Creatinine 1.1 MG/DL (0.55-1.30) 1.0 MG/DL (0.55-1.30) 0.9 MG/DL (0.55-1.30) Estimat Glomerular Filtration Rate > 60 mL/min (>60) > 60 mL/min (>60) > 60 mL/min (>60) Glucose Level 105 MG/DL (74-106) 97 MG/DL (74-106) 111 MG/DL (74-106) Lactic Acid Level 1.40 mmol/L (0.4-2.0) Calcium Level 8.9 MG/DL (8.5-10.1) 8.8 MG/DL (8.5-10.1) 9.2 MG/DL (8.5-10.1) Total Bilirubin 0.7 MG/DL (0.2-1.0) 0.8 MG/DL (0.2-1.0) 0.9 MG/DL (0.2-1.0) Aspartate Amino Transf (AST/SGOT) 16 U/L (15-37) 22 U/L (15-37) 14 U/L (15-37) Alanine Aminotransferase (ALT/SGPT) 16 U/L (12-78) 16 U/L (12-78) 15 U/L (12-78) Alkaline Phosphatase 91 U/L (46-116) 88 U/L (46-116) 80 U/L (46-116) Total Protein 7.6 G/DL (6.4-8.2) 7.7 G/DL (6.4-8.2) 7.1 G/DL (6.4-8.2) Albumin 3.0 G/DL (3.4-5.0) 3.0 G/DL (3.4-5.0) 2.8 G/DL (3.4-5.0) Globulin 4.6 g/dL 4.7 g/dL 4.3 g/dL Albumin/Globulin Ratio 0.7 (1.0-2.7) 0.6 (1.0-2.7) 0.7 (1.0-2.7) Urine Color Brown Urine Appearance Cloudy Urine pH 5 (4.5-8.0) Urine Specific [place] 1.020 (1.005-1.035) Urine Protein 4+ (NEGATIVE) Urine Glucose (UA) Negative (NEGATIVE) Urine Ketones 1+ (NEGATIVE) Urine Blood 5+ (NEGATIVE) Urine Nitrite Positive (NEGATIVE) Urine Bilirubin Negative (NEGATIVE) Urine Urobilinogen 1 MG/DL (0.0-1.0) Urine Leukocyte Esterase 3+ (NEGATIVE) Urine RBC Tntc /HPF (0 - 2) Urine WBC Tntc /HPF (0 - 2) Urine Squamous Epithelial Cells None /LPF (NONE/OCC) Urine Bacteria Moderate /HPF (NONE) Urine Yeast Moderate /HPF (NONE) Lymphocytes 25 % (Not Estab.) Nucleated Red Blood Cells (.) Absolute Lymphocytes (Cell Immunity 1.8 x10E3/uL (0.7-3.1) Percent CD3 Cells 77.6 % (57.5-86.2) Absolute CD3 Count 1397 /uL (622-2402) Percent CD4 Cells 32.1 % (30.8-58.5) Absolute CD4 Count 578 /uL (359-1519) T-Lymphocyte CD4/CD8 Ratio 0.75 (0.92-3.72) Percent CD8 Cells 42.7 % (12.0-35.5) Absolute CD8 Count 769 /uL (109-897) Test 06/20/18 02:05 Sodium Level 146 MMOL/L (136-145) Potassium Level 3.5 MMOL/L (3.5-5.1) Chloride Level 107 MMOL/L (98-107) Carbon Dioxide Level 36 MMOL/L (21-32) Anion Gap 3 mmol/L (5-15) Blood Urea Nitrogen 13 mg/dL (7-18) Creatinine 0.7 MG/DL (0.55-1.30) Estimat Glomerular Filtration Rate > 60 mL/min (>60) Glucose Level 122 MG/DL (74-106) Calcium Level 8.9 MG/DL (8.5-10.1) Vancomycin Level Trough 10.5 ug/mL (5.0-12.0) Laboratory Tests Test 06/20/18 02:05 Sodium Level 146 MMOL/L (136-145) H Potassium Level 3.5 MMOL/L (3.5-5.1) Chloride Level 107 MMOL/L (98-107) Carbon Dioxide Level 36 MMOL/L (21-32) H Anion Gap 3 mmol/L (5-15) L Blood Urea Nitrogen 13 mg/dL (7-18) Creatinine 0.7 MG/DL (0.55-1.30) Estimat Glomerular Filtration Rate > 60 mL/min (>60) Glucose Level 122 MG/DL (74-106) H Calcium Level 8.9 MG/DL (8.5-10.1) Vancomycin Level Trough 10.5 ug/mL (5.0-12.0) Current Medications Medications (Trade) Dose Ordered Sig/Kevin Route PRN Reason Start Time Stop Time Status Last Admin Dose Admin Acetaminophen (Tylenol) 325 mg Q6H PRN ORAL Mild Pain (Pain Scale 1-3) 06/18/18 09:00 07/18/18 08:59 Ascorbic Acid (Vitamin C) 500 mg TWICE A DAY ORAL 06/18/18 09:00 07/18/18 08:59 06/20/18 09:31 Baclofen (Lioresal) 10 mg THREE TIMES A DAY ORAL 06/18/18 09:00 07/18/18 08:59 06/20/18 13:31 Bisacodyl (Dulcolax) 20 mg DAILYPRN PRN ORAL Constipation 06/18/18 09:00 07/18/18 08:59 Chlorhexidine Gluconate (Mariah-Hex 2%) 1 applic DAILY@1999 TOPIC 06/19/18 20:00 07/19/18 19:59 06/20/18 03:23 Ciprofloxacin (Cipro 500mg tab) 500 mg EVERY 12 HOURS ORAL 06/20/18 21:00 06/27/18 20:59 Dextrose (Dextrose 50%) 25 ml Q30M PRN IV Hypoglycemia 06/18/18 09:00 07/18/18 08:59 Dextrose (Dextrose 50%) 50 ml Q30M PRN IV Hypoglycemia 06/18/18 09:00 07/18/18 08:59 Diphenhydramine HCl (Benadryl) 25 mg Q6H PRN ORAL Itching 06/20/18 10:00 07/20/18 09:59 Docusate Sodium (Colace) 250 mg DAILY ORAL 06/18/18 09:00 07/18/18 08:59 Furosemide (Lasix) 40 mg DAILY ORAL 06/18/18 09:00 07/18/18 08:59 06/20/18 09:35 Gabapentin (Neurontin) 300 mg THREE TIMES A DAY ORAL 06/18/18 09:00 07/18/18 08:59 06/20/18 13:31 Heparin Sodium/ Sodium Chloride (Heparin 2000 units/Ns 1000ml premix) 2,000 unit ONCE PRN INJ picc line placement 06/19/18 08:15 06/21/18 08:14 Lidocaine HCl (Xylocaine 1% 30ml) 30 ml ONCE PRN INJ picc line placement 06/19/18 08:15 06/21/18 08:14 Lorazepam (Ativan) 2 mg Q6H PRN ORAL For Anxiety 06/18/18 18:00 06/25/18 17:59 Magnesium Hydroxide (Mom) 30 ml DAILY ORAL 06/18/18 09:00 07/18/18 08:59 06/20/18 09:35 Metronidazole (Flagyl) 500 mg Q8HR ORAL 06/20/18 14:00 06/27/18 13:59 06/20/18 14:07 Midodrine (Pro-Amatine) 10 mg THREE TIMES A DAY ORAL 06/18/18 09:00 07/18/18 08:59 06/20/18 13:31 Morphine Sulfate (MS Contin) 15 mg EVERY 12 HOURS ORAL 06/18/18 09:00 06/25/18 08:59 06/20/18 09:30 Morphine Sulfate (Morphine Sulfate) 2 mg EVERY 6 HOURS PRN IVP Moderate Pain (Pain Scale 4-6) 06/18/18 03:45 06/25/18 03:44 Morphine Sulfate (Morphine Sulfate) 4 mg EVERY 6 HOURS PRN IVP Severe Pain (Pain Scale 7-10) 06/18/18 03:45 06/25/18 03:44 06/20/18 14:41 Ondansetron HCl (Zofran) 4 mg Q6H PRN ORAL Nausea & Vomiting 06/18/18 09:00 07/18/18 08:59 Quetiapine Fumarate (SEROquel) 100 mg BEDTIME ORAL 06/18/18 21:00 07/18/18 20:59 06/19/18 21:57 Rivaroxaban (Xarelto) 15 mg DAILY ORAL 06/18/18 09:00 07/18/18 08:59 06/20/18 09:31 Placido Butterfield MD Jun 20, 2018 15:23
[2018-06-20 16:00] VITALS: BP 97/55
--- NOTE | 2018-06-20 19:00 | NUR ---
NURSE NOTES: Patient resting,bilateral dressing to, lower legs intact,patient had Large soft brown BM today,patient state she is having diarrhea,stool for cdiff was sent as ordered.Call light within reach,bed alarm is on.
--- NOTE | 2018-06-20 19:20 | NUR ---
HAND-OFF: Report given t Reta RN
--- NOTE | 2018-06-20 19:40 | NUR ---
NURSE NOTES: Received report from HALI [place]. Patient A&Ox4, on room air. No signs of distress or labored breathing. PICC line intact, patent, and saline locked. Patient complaining of pain. Bed in lowest position with call light in reach. Will continue with plan of care.
[2018-06-20 20:00] VITALS: BP 113/57
[2018-06-20] MEDS: Ciprofloxacin 500mg tab ORAL SCH (21:13)
--- NOTE | 2018-06-20 21:30 | NUR ---
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
[2018-06-21] VITALS: BP 101/55
--- NOTE | 2018-06-21 01:30 | NUR ---
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
[2018-06-21 04:00] VITALS: BP 101/45
[2018-06-21] MEDS: Vancomycin 750mg/NS 275ml IVPB SCH ×4 (04:07→15:59)
[2018-06-21] MEDS: Morphine Sulfate 4mg/ml Inj (IV/IM USE ONLY) IVP PRN ×4 (06:01→18:27)
[2018-06-21] MEDS: metroNIDAZOLE 500mg tab ORAL SCH ×3 (06:02→21:57)
--- NOTE | 2018-06-21 07:49 | NUR ---
HAND-OFF: Report given to Rochelle Jay RN.
--- NOTE | 2018-06-21 07:50 | NUR ---
NURSE NOTES: Received patient in bed, awake, oriented, able to make needs known, On room room air, no signs of distress nor labored breathing, Bed in lowest position and locked, Call light and needs with in reach. Will continue to monitor.
[2018-06-21 08:00] VITALS: BP 99/62
[2018-06-21] MEDS: Xarelto 15mg tab ORAL SCH (08:23)
[2018-06-21] MEDS: Midodrine 10mg tab ORAL SCH ×3 (08:23→18:10)
[2018-06-21] MEDS: Docusate 250mg cap ORAL SCH (08:24)
[2018-06-21] MEDS: Ascorbic Acid 500mg tab ORAL SCH ×2 (08:25→18:10)
[2018-06-21] MEDS: Ciprofloxacin 500mg tab ORAL SCH ×2 (08:25→21:57)
[2018-06-21] MEDS: MS Contin 15mg tab ORAL SCH ×2 (08:25→21:59)
[2018-06-21] MEDS: Milk of Magnesia 30ml Ud ORAL SCH ×2 (08:26→08:34)
--- NOTE | 2018-06-21 08:30 | NUR ---
NURSE NOTES: Patient refused 9AM Milk of magnesia, explained benefits and risks, but patient still refused.
[2018-06-21] MEDS: Furosemide 40mg tab ORAL SCH (08:32)
[2018-06-21] MEDS ORDERED: Tubing IV Secondary IV ONE (10:31)
[2018-06-21] MEDS ORDERED: NS 275ml ONE (10:31)
[2018-06-21 11:18] LABS: ANION GAP 7 mmol/L (5-15); BLOOD UREA NITROGEN 14 mg/dL (7-18); CALCIUM 9.2 MG/DL (8.5-10.1); CARBON DIOXIDE 34 MMOL/L (21-32); CHLORIDE 104 MMOL/L (98-107); CREATININE 0.8 MG/DL (0.55-1.30); POTASSIUM 3.5 MMOL/L (3.5-5.1); SODIUM 145 MMOL/L (136-145)
[2018-06-21 12:00] VITALS: BP 110/58
--- NOTE | 2018-06-21 12:00 | NUR ---
NURSE NOTES: Patient refused reposition. RN explained the risks and benefits. Encouraged to be turned but refused. x3.
[2018-06-21 12:01] LABS: BASOPHILS % (AUTO) 0.8 % (0.0-2.0); EOSINOPHILS % (AUTO) 4.6 % (0.0-3.0); HEMATOCRIT 35.3 % (37.0-47.0); HEMOGLOBIN 11.8 G/DL (12.0-16.0); LYMPHOCYTES % (AUTO) 35.2 % (20.0-45.0); MEAN CORPUSCULAR VOLUME 87 FL (80-99); MONOCYTES % (AUTO) 7.2 % (1.0-10.0); NEUTROPHILS % (AUTO) 52.2 % (45.0-75.0); PLATELET COUNT 361 K/UL (150-450); RED BLOOD COUNT 4.05 M/UL (4.20-5.40); RED CELL DISTRIBUTION WIDTH 14.2 % (11.6-14.8); WHITE BLOOD COUNT 6.4 K/UL (4.8-10.8)
--- NOTE | 2018-06-21 13:00 | NUR ---
NURSE NOTES: Dr. Coulter came in and relayed refusal of care and swollen legs. Dr. Coulter wants to see the blood work before he orders lasix IV.
--- NOTE | 2018-06-21 13:01 | NUR ---
CASE MANAGEMENT: REVIEW 06/21/2018 SI: CELLULITIS LOWER EXTREMITIES. HEMATURIA. T 98.7 HR 94 RR 19 B/P 99/62 SATS 92% ON RA CO2 34 GLUCOSE 119 IS: MS CONTIN PO Q12H CIPRO PO Q12H SEROQUEL PO QHS LASIX PO QD XARELTO PO VANCO IV Q12H FLAGYL PO Q8H BACLOFEN PO TID GABAPENTIN PO TID MIDODRINE PO TID MED/SURG STATUS DCP:PATIENT TO BE DISCHARGED TO SNF ONCE MEDICALLY CLEARED. PLAN OF CARE: vancomycin, cipro and flagyl
--- NOTE | 2018-06-21 13:52 | Surgery Progress Note ---
Surgery Progress Note Subjective Additional Comments no acute events. labs noted. overall improving Objective Last 24 Hour Vital Signs Date Time Temp Pulse Resp B/P (MAP) Pulse Ox O2 Delivery O2 Flow Rate FiO2 06/21/18 12:00 98.4 75 20 110/58 (75) 98 06/21/18 09:00 Room Air 06/21/18 08:00 98.7 94 19 99/62 (74) 92 06/21/18 04:00 98.6 95 18 101/45 (63) 92 06/21/18 00:00 98.1 96 18 101/55 (70) 97 06/20/18 21:00 Room Air 06/20/18 20:00 98.4 96 17 113/57 (75) 92 06/20/18 18:40 98.8 06/20/18 16:00 100.4 91 19 97/55 (69) 94 I&O Intake and Output 06/20/18 06/21/18 19:00 07:00 Intake Total 600 ml Output Total 1000 ml Balance -400 ml Intake Oral 600 ml Output Urine Total 1000 ml # Bowel Movements 1 Dressing: other Wound: other Drains: other Cardiovascular: RSR Respiratory: clear Abdomen: soft, flat, non-tender, present bowel sounds Extremities: edema, other Laboratory Tests Test 06/21/18 11:00 White Blood Count 6.4 K/UL (4.8-10.8) Red Blood Count 4.05 M/UL (4.20-5.40) L Hemoglobin 11.8 G/DL (12.0-16.0) L Hematocrit 35.3 % (37.0-47.0) L Mean Corpuscular Volume 87 FL (80-99) Mean Corpuscular Hemoglobin 29.0 PG (27.0-31.0) Mean Corpuscular Hemoglobin Concent 33.3 G/DL (32.0-36.0) Red Cell Distribution Width 14.2 % (11.6-14.8) Platelet Count 361 K/UL (150-450) Mean Platelet Volume 5.3 FL (6.5-10.1) L Neutrophils (%) (Auto) 52.2 % (45.0-75.0) Lymphocytes (%) (Auto) 35.2 % (20.0-45.0) Monocytes (%) (Auto) 7.2 % (1.0-10.0) Eosinophils (%) (Auto) 4.6 % (0.0-3.0) H Basophils (%) (Auto) 0.8 % (0.0-2.0) Sodium Level 145 MMOL/L (136-145) Potassium Level 3.5 MMOL/L (3.5-5.1) Chloride Level 104 MMOL/L (98-107) Carbon Dioxide Level 34 MMOL/L (21-32) H Anion Gap 7 mmol/L (5-15) Blood Urea Nitrogen 14 mg/dL (7-18) Creatinine 0.8 MG/DL (0.55-1.30) Estimat Glomerular Filtration Rate > 60 mL/min (>60) Glucose Level 119 MG/DL (74-106) H Calcium Level 9.2 MG/DL (8.5-10.1) Plan Problems: (1) Stage 4 skin ulcer of sacral region Assessment & Plan: chronic appearing sacral decubitus ulcer with multiple areas of healing and skin breakdown. area of stage 4 with tracking in superior direction. some minimal drainage. no foul odor. periwound erythema but no induration. states she has had it for long time and is painful. unable to participate in exam because of pain -no acute surgical intervention planed -limited exam given pain -will plan to reexamine soon -for now turn q2h -off load pressure -air mattress -apply skin protectant and foam dressings thank you (2) Bilateral lower leg cellulitis Assessment & Plan: bilateral lower extremity cellulitis with edema, tenderness , erythema. no fluctuance or abscess. no drainage -keep legs elevated -apply skin protectant, abd and wrap -edema improving will follow with recs d/c planning thank you Juwan Malcolm Jun 21, 2018 13:52
--- NOTE | 2018-06-21 14:00 | NUR ---
NURSE NOTES: Patient refused reposition. RN explained the risks and benefits. Encouraged to be turned but refused. x3.
--- NOTE | 2018-06-21 15:34 | General Progress Note ---
Assessment/Plan Assessment/Plan #Bilateral LE cellulitis and drainage -continue inpatient level of care -continue IV antibiotics -local wound care -give one dose of IV Lasix -Surgery consult appreciated -ID following #Chronic Tinajero with pyuria and hematuria, possible catheter related UTI -culture growing resistant Pseudomonas -antibiotics adjusted #Chronic sacral pressure ulcer -Surgery eval appreciated #Hypokalemia -resolved -repeat BMP in AM #Chronic pain #Narcotic dependance -resume outpatient pain regimen #History of atrial fibrillation -continue Xarelto #morbid obesity #paraplegia #neurogenic bladder -continue supportive care Subjective Date patient seen: Jun 21, 2018 Time patient seen: 09:45 Constitutional: Denies: chills, fever Cardiovascular: Denies: chest pain Respiratory: Denies: cough, shortness of breath Gastrointestinal/Abdominal: Denies: abdominal pain Allergies: Coded Allergies: No Known Allergies (Unverified , 06/17/18) Subjective Medicine follow up for bilateral LE cellulitis and wounds, sacral pressure ulcer. No new complaints.Asking for increased Lasix for leg edema Objective Last 24 Hour Vital Signs Date Time Temp Pulse Resp B/P (MAP) Pulse Ox O2 Delivery O2 Flow Rate FiO2 06/21/18 12:00 98.4 75 20 110/58 (75) 98 06/21/18 09:00 Room Air 06/21/18 08:00 98.7 94 19 99/62 (74) 92 06/21/18 04:00 98.6 95 18 101/45 (63) 92 06/21/18 00:00 98.1 96 18 101/55 (70) 97 06/20/18 21:00 Room Air 06/20/18 20:00 98.4 96 17 113/57 (75) 92 06/20/18 18:40 98.8 06/20/18 16:00 100.4 91 19 97/55 (69) 94 Intake and Output 06/20/18 06/21/18 19:00 07:00 Intake Total 600 ml Output Total 1000 ml Balance -400 ml Intake Oral 600 ml Output Urine Total 1000 ml # Bowel Movements 1 Laboratory Tests 06/21/18 11:00: White Blood Count 6.4, Red Blood Count 4.05L, Hemoglobin 11.8L, Hematocrit 35.3L , Mean Corpuscular Volume 87, Mean Corpuscular Hemoglobin 29.0, Mean Corpuscular Hemoglobin Concent 33.3, Red Cell Distribution Width 14.2, Platelet Count 361, Mean Platelet Volume 5.3L, Neutrophils (%) (Auto) 52.2, Lymphocytes ( %) (Auto) 35.2, Monocytes (%) (Auto) 7.2, Eosinophils (%) (Auto) 4.6H, Basophils (%) (Auto) 0.8, Sodium Level 145, Potassium Level 3.5, Chloride Level 104, Carbon Dioxide Level 34H, Anion Gap 7, Blood Urea Nitrogen 14, Creatinine 0.8, Estimat Glomerular Filtration Rate > 60, Glucose Level 119H, Calcium Level 9.2 Height (Feet): 5 Height (Inches): 4.00 Weight (Pounds): 220 General Appearance: no apparent distress, alert Cardiovascular: normal rate, regular rhythm Respiratory/Chest: lungs clear, normal breath sounds Abdomen: non tender, soft Extremities: other - Bilateral leg edema 1+ Jitendra Sharma MD Jun 21, 2018 15:34
[2018-06-21 16:00] VITALS: BP 121/75
--- NOTE | 2018-06-21 18:00 | NUR ---
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
--- NOTE | 2018-06-21 19:37 | NUR ---
HAND-OFF: Report given to Reta.
--- NOTE | 2018-06-21 19:38 | NUR ---
NURSE NOTES: Endorsed to Reta to draw the blood for BMP in am since patient has an PICC line.
[2018-06-21 20:00] VITALS: BP 96/62
[2018-06-21] MEDS: Dyna-Hex 2% Top Sol 2oz TOPIC SCH (20:00)
--- NOTE | 2018-06-21 20:00 | NUR ---
NURSE NOTES: Received report from Rochelle Jay RN and HALI [place]. Patient A&Ox4, on room air, no signs of distress or labored breathing. PICC intact, patent, and infusing TKO. Tinajero intact, patent, and draining urine. Denies intolerable pain. Bed in lowest position with call light in reach. Will continue with plan of care.
--- NOTE | 2018-06-21 20:15 | NUR ---
NURSE NOTES: CHG solution non-admitted because there is still an unfinished bottle in the room. Addendum: 06/22/18 at 0244 by Reta Saucedo RN NURSE NOTES: Scanned a new bottle for CHG bath.
[2018-06-22] VITALS: BP 83/57
[2018-06-22] MEDS: Dyna-Hex 2% Top Sol 2oz TOPIC SCH ×2 (02:37→20:00)
[2018-06-22 04:00] VITALS: BP 85/59
[2018-06-22] MEDS: Vancomycin 750mg/NS 275ml IVPB SCH ×4 (05:06→16:18)
[2018-06-22 06:57] LABS: ANION GAP 7 mmol/L (5-15); BLOOD UREA NITROGEN 15 mg/dL (7-18); CALCIUM 9.4 MG/DL (8.5-10.1); CARBON DIOXIDE 32 MMOL/L (21-32); CHLORIDE 104 MMOL/L (98-107); CREATININE 0.9 MG/DL (0.55-1.30); POTASSIUM 3.2 MMOL/L (3.5-5.1); SODIUM 143 MMOL/L (136-145)
[2018-06-22] MEDS: metroNIDAZOLE 500mg tab ORAL SCH ×3 (07:11→21:20)
--- NOTE | 2018-06-22 07:56 | NUR ---
NURSE NOTES: Patient received in stable condition, eating breakfast in bed. Alert and oriented, breathing unlabored on room air. Denies pain or SOB at this time. PICC line patent and intact on left arm. Tinajero catheter patent. Bed locked in low position. Call light within reach, will continue to monitor.
[2018-06-22 08:00] VITALS: BP 95/60
--- NOTE | 2018-06-22 08:27 | NUR ---
HAND-OFF: Report given to HALI [place].
[2018-06-22] MEDS: Docusate 250mg cap ORAL SCH (08:44)
[2018-06-22] MEDS: Midodrine 10mg tab ORAL SCH ×3 (08:44→17:17)
[2018-06-22] MEDS: Ciprofloxacin 500mg tab ORAL SCH ×2 (08:44→21:20)
[2018-06-22] MEDS: Milk of Magnesia 30ml Ud ORAL SCH (08:45)
[2018-06-22] MEDS: Xarelto 15mg tab ORAL SCH (08:45)
[2018-06-22] MEDS: MS Contin 15mg tab ORAL SCH ×2 (08:45→21:20)
[2018-06-22] MEDS: Ascorbic Acid 500mg tab ORAL SCH ×2 (08:45→17:17)
--- NOTE | 2018-06-22 10:45 | General Progress Note ---
Assessment/Plan Problem List: (1) Bipolar 1 disorder ICD Codes: F31.9 - Bipolar disorder, unspecified SNOMED: 239835782 Assessment/Plan increase Seroquel to 100mg po qhs dc Abilify Ativan 2mg q 6hr/prn/agitation celexa 20mg qam klonopin 1mg po qhs Subjective Neurologic/Psychiatric: Reports: anxiety, depressed, emotional problems Allergies: Coded Allergies: No Known Allergies (Unverified , 06/17/18) Subjective refusing wound care Objective Last 24 Hour Vital Signs Date Time Temp Pulse Resp B/P (MAP) Pulse Ox O2 Delivery O2 Flow Rate FiO2 06/22/18 09:00 Room Air 06/22/18 08:00 98.4 97 18 95/60 (72) 98 06/22/18 04:00 98.2 91 18 85/59 (68) 96 06/22/18 00:00 98.1 98 18 83/57 (66) 100 06/21/18 21:00 Room Air 06/21/18 20:00 98.7 90 19 96/62 (73) 97 06/21/18 16:00 98.1 88 19 121/75 (90) 99 06/21/18 12:00 98.4 75 20 110/58 (75) 98 Intake and Output 06/21/18 06/22/18 18:59 06:59 Intake Total 870.000 ml Output Total 1700 ml 300 ml Balance -830.000 ml -300 ml Intake Oral 600 ml IV Total 270.000 ml Output Urine Total 1700 ml 300 ml # Bowel Movements 1 Laboratory Tests 06/21/18 11:00: White Blood Count 6.4, Red Blood Count 4.05L, Hemoglobin 11.8L, Hematocrit 35.3L , Mean Corpuscular Volume 87, Mean Corpuscular Hemoglobin 29.0, Mean Corpuscular Hemoglobin Concent 33.3, Red Cell Distribution Width 14.2, Platelet Count 361, Mean Platelet Volume 5.3L, Neutrophils (%) (Auto) 52.2, Lymphocytes ( %) (Auto) 35.2, Monocytes (%) (Auto) 7.2, Eosinophils (%) (Auto) 4.6H, Basophils (%) (Auto) 0.8, Sodium Level 145, Potassium Level 3.5, Chloride Level 104, Carbon Dioxide Level 34H, Anion Gap 7, Blood Urea Nitrogen 14, Creatinine 0.8, Estimat Glomerular Filtration Rate > 60, Glucose Level 119H, Calcium Level 9.2 06/22/18 05:05: Sodium Level 143, Potassium Level 3.2L, Chloride Level 104, Carbon Dioxide Level 32, Anion Gap 7, Blood Urea Nitrogen 15, Creatinine 0.9, Estimat Glomerular Filtration Rate > 60, Glucose Level 108H, Calcium Level 9.4 Height (Feet): 5 Height (Inches): 4.00 Weight (Pounds): 220 General Appearance: alert, agitated, obese Ariel Boyer MD Jun 22, 2018 10:45
[2018-06-22] MEDS: Citalopram Hydrobromide 10mg Tab ORAL SCH ×2 (11:01→11:09)
--- NOTE | 2018-06-22 11:43 | NUR ---
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 98.2 HR 91 RR 18 B/P 85/59 K 3.2 IS: VANCO IV LASIX IV FLAGYL PO CIPRO PO MED/SURG STATUS
[2018-06-22 12:00] VITALS: BP 118/77
--- NOTE | 2018-06-22 12:40 | Surgery Progress Note ---
Surgery Progress Note Subjective Additional Comments no acute events. stable. comfortable. edema improving Objective Last 24 Hour Vital Signs Date Time Temp Pulse Resp B/P (MAP) Pulse Ox O2 Delivery O2 Flow Rate FiO2 06/22/18 12:00 99.1 95 18 118/77 (91) 97 06/22/18 09:00 Room Air 06/22/18 08:00 98.4 97 18 95/60 (72) 98 06/22/18 04:00 98.2 91 18 85/59 (68) 96 06/22/18 00:00 98.1 98 18 83/57 (66) 100 06/21/18 21:00 Room Air 06/21/18 20:00 98.7 90 19 96/62 (73) 97 06/21/18 16:00 98.1 88 19 121/75 (90) 99 I&O Intake and Output 06/21/18 06/22/18 18:59 06:59 Intake Total 870.000 ml Output Total 1700 ml 300 ml Balance -830.000 ml -300 ml Intake Oral 600 ml IV Total 270.000 ml Output Urine Total 1700 ml 300 ml # Bowel Movements 1 Dressing: other Wound: other Drains: other Cardiovascular: RSR Respiratory: clear Abdomen: soft, present bowel sounds, non-distended Extremities: edema, other Laboratory Tests Test 06/22/18 05:05 Sodium Level 143 MMOL/L (136-145) Potassium Level 3.2 MMOL/L (3.5-5.1) L Chloride Level 104 MMOL/L (98-107) Carbon Dioxide Level 32 MMOL/L (21-32) Anion Gap 7 mmol/L (5-15) Blood Urea Nitrogen 15 mg/dL (7-18) Creatinine 0.9 MG/DL (0.55-1.30) Estimat Glomerular Filtration Rate > 60 mL/min (>60) Glucose Level 108 MG/DL (74-106) H Calcium Level 9.4 MG/DL (8.5-10.1) Plan Problems: (1) Stage 4 skin ulcer of sacral region Assessment & Plan: chronic appearing sacral decubitus ulcer with multiple areas of healing and skin breakdown. area of stage 4 with tracking in superior direction. some minimal drainage. no foul odor. periwound erythema but no induration. states she has had it for long time and is painful. unable to participate in exam because of pain -no acute surgical intervention planed -limited exam given pain -will plan to reexamine soon -for now turn q2h -off load pressure -air mattress -apply skin protectant and foam dressings thank you (2) Bilateral lower leg cellulitis Assessment & Plan: bilateral lower extremity cellulitis with edema, tenderness , erythema. no fluctuance or abscess. no drainage -keep legs elevated -apply skin protectant, abd and wrap -edema improving will follow with recs d/c planning thank you Juwan Malcolm Jun 22, 2018 12:40
--- NOTE | 2018-06-22 12:41 | General Progress Note ---
Assessment/Plan Assessment/Plan #Bilateral LE cellulitis and drainage -continue inpatient level of care -continue IV antibiotics -local wound care -continue IV Lasix -monitor BMP -Surgery consult appreciated -ID following #Chronic Tinajero with pyuria and hematuria, possible catheter related UTI -culture growing resistant Pseudomonas -antibiotics adjusted #Chronic sacral pressure ulcer -Surgery eval appreciated #Hypokalemia -give another dose of KCl -repeat BMP in AM #Chronic pain #Narcotic dependance -resume outpatient pain regimen #History of atrial fibrillation -continue Xarelto #morbid obesity #paraplegia #neurogenic bladder -continue supportive care Subjective Date patient seen: Jun 22, 2018 Time patient seen: 08:00 Constitutional: Denies: chills, fever Cardiovascular: Reports: edema; Denies: chest pain Respiratory: Denies: cough, orthopnea, shortness of breath Allergies: Coded Allergies: No Known Allergies (Unverified , 06/17/18) Subjective Medicine follow up for bilateral LE cellulitis and wounds, sacral pressure ulcer. LE edema/pain improved with IV Lasix Objective Last 24 Hour Vital Signs Date Time Temp Pulse Resp B/P (MAP) Pulse Ox O2 Delivery O2 Flow Rate FiO2 06/22/18 12:00 99.1 95 18 118/77 (91) 97 06/22/18 09:00 Room Air 06/22/18 08:00 98.4 97 18 95/60 (72) 98 06/22/18 04:00 98.2 91 18 85/59 (68) 96 06/22/18 00:00 98.1 98 18 83/57 (66) 100 06/21/18 21:00 Room Air 06/21/18 20:00 98.7 90 19 96/62 (73) 97 06/21/18 16:00 98.1 88 19 121/75 (90) 99 Intake and Output 06/21/18 06/22/18 18:59 06:59 Intake Total 870.000 ml Output Total 1700 ml 300 ml Balance -830.000 ml -300 ml Intake Oral 600 ml IV Total 270.000 ml Output Urine Total 1700 ml 300 ml # Bowel Movements 1 Laboratory Tests 06/22/18 05:05: Sodium Level 143, Potassium Level 3.2L, Chloride Level 104, Carbon Dioxide Level 32, Anion Gap 7, Blood Urea Nitrogen 15, Creatinine 0.9, Estimat Glomerular Filtration Rate > 60, Glucose Level 108H, Calcium Level 9.4 Height (Feet): 5 Height (Inches): 4.00 Weight (Pounds): 220 General Appearance: no apparent distress, alert Cardiovascular: normal rate, regular rhythm Respiratory/Chest: lungs clear, normal breath sounds Abdomen: non tender, soft Jitendra Sharma MD Jun 22, 2018 12:41
[2018-06-22] MEDS: oxyCODONE HCL/Acetaminophen 5/325mg ORAL PRN ×3 (13:13→21:18)
[2018-06-22 16:00] VITALS: BP 122/65
--- NOTE | 2018-06-22 17:10 | Infectious Diseases Prog Note ---
Assessment/Plan Assessment/Plan ASSESSMENT AND PLAN: 1. bilateral leg cellulitis, pseudomonas uti - vancomycin, cipro and flagyl - can transition to oral cipro plus clindamycin x 5 days upon discharge - monitor labs - cellulitis improved overall 2. hiv, hx of aids - [id number], vl pending, stribild not available at [place], pt to f/u with primary HIV MD as outpatient 3. wounds - skin care protocol. 4. The patient has a history of atrial fibrillation. 5. CVA, TIA. 6. Paraplegia. 7. Psychiatric disease. 8. Renal disease. 9. Quadriplegia. 10. Neurogenic bladder and chronic Yan. 11. Atrial fibrillation. 12. Allergies are negative. 13. Social history is negative. 14. Family history noncontributory. 15. MAR was noted. 16. Case discussed with the patient's RN. 17. Continue treatment with primary consultants. 18. Noted and record were noted. Subjective Constitutional: Reports: fatigue; Denies: fever HEENT: Denies: congestion Respiratory: Denies: shortness of breath Cardiovascular: Denies: chest pain Gastrointestinal/Abdominal: Denies: nausea, vomiting, diarrhea Genitourinary: Reports: other - no yan Neurologic: Denies: headache Skin: Denies: rash Hematologic: Denies: bleeding Musculoskeletal: Denies: pain Allergies: Coded Allergies: No Known Allergies (Unverified , 06/17/18) Objective Vital Signs Last 24 Hour Vital Signs Date Time Temp Pulse Resp B/P (MAP) Pulse Ox O2 Delivery O2 Flow Rate FiO2 06/22/18 16:00 99.8 96 18 122/65 (84) 98 06/22/18 12:00 99.1 95 18 118/77 (91) 97 06/22/18 09:00 Room Air 06/22/18 08:00 98.4 97 18 95/60 (72) 98 06/22/18 04:00 98.2 91 18 85/59 (68) 96 06/22/18 00:00 98.1 98 18 83/57 (66) 100 06/21/18 21:00 Room Air 06/21/18 20:00 98.7 90 19 96/62 (73) 97 Height (Feet): 5 Height (Inches): 4.00 Weight (Pounds): 220 General Appearance: no acute distress HEENT: normocephalic, atraumatic, anicteric, mucous membranes moist Respiratory/Chest: lungs clear, normal breath sounds, no respiratory distress, no accessory muscle use Cardiovascular: normal rate, regular rhythm, no gallop/murmur, no JVD Abdomen: normal bowel sounds, soft, non tender, no organomegaly, non distended Genitourinary: other - no yan Extremities: no cyanosis, other - legs covered Skin: no rash 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, alert, oriented x 3, responsive Lymphatic: no neck adenopathy Musculoskeletal: no effusion Objective none Microbiology Date/Time Source Procedure Growth Status 06/17/18 23:55 Blood Blood Culture - Preliminary NO GROWTH AFTER 4 DAYS Resulted 06/18/18 00:00 Urine,Clean Catch Urine Culture - Final Pseudomonas Aeruginosa Complete Labs Test 06/20/18 02:05 06/21/18 11:00 06/22/18 05:05 Sodium Level 146 MMOL/L (136-145) 145 MMOL/L (136-145) 143 MMOL/L (136-145) Potassium Level 3.5 MMOL/L (3.5-5.1) 3.5 MMOL/L (3.5-5.1) 3.2 MMOL/L (3.5-5.1) Chloride Level 107 MMOL/L (98-107) 104 MMOL/L (98-107) 104 MMOL/L (98-107) Carbon Dioxide Level 36 MMOL/L (21-32) 34 MMOL/L (21-32) 32 MMOL/L (21-32) Anion Gap 3 mmol/L (5-15) 7 mmol/L (5-15) 7 mmol/L (5-15) Blood Urea Nitrogen 13 mg/dL (7-18) 14 mg/dL (7-18) 15 mg/dL (7-18) Creatinine 0.7 MG/DL (0.55-1.30) 0.8 MG/DL (0.55-1.30) 0.9 MG/DL (0.55-1.30) Estimat Glomerular Filtration Rate > 60 mL/min (>60) > 60 mL/min (>60) > 60 mL/min (>60) Glucose Level 122 MG/DL (74-106) 119 MG/DL (74-106) 108 MG/DL (74-106) Calcium Level 8.9 MG/DL (8.5-10.1) 9.2 MG/DL (8.5-10.1) 9.4 MG/DL (8.5-10.1) Vancomycin Level Trough 10.5 ug/mL (5.0-12.0) White Blood Count 6.4 K/UL (4.8-10.8) Red Blood Count 4.05 M/UL (4.20-5.40) Hemoglobin 11.8 G/DL (12.0-16.0) Hematocrit 35.3 % (37.0-47.0) Mean Corpuscular Volume 87 FL (80-99) Mean Corpuscular Hemoglobin 29.0 PG (27.0-31.0) Mean Corpuscular Hemoglobin Concent 33.3 G/DL (32.0-36.0) Red Cell Distribution Width 14.2 % (11.6-14.8) Platelet Count 361 K/UL (150-450) Mean Platelet Volume 5.3 FL (6.5-10.1) Neutrophils (%) (Auto) 52.2 % (45.0-75.0) Lymphocytes (%) (Auto) 35.2 % (20.0-45.0) Monocytes (%) (Auto) 7.2 % (1.0-10.0) Eosinophils (%) (Auto) 4.6 % (0.0-3.0) Basophils (%) (Auto) 0.8 % (0.0-2.0) Laboratory Tests Test 06/22/18 05:05 Sodium Level 143 MMOL/L (136-145) Potassium Level 3.2 MMOL/L (3.5-5.1) L Chloride Level 104 MMOL/L (98-107) Carbon Dioxide Level 32 MMOL/L (21-32) Anion Gap 7 mmol/L (5-15) Blood Urea Nitrogen 15 mg/dL (7-18) Creatinine 0.9 MG/DL (0.55-1.30) Estimat Glomerular Filtration Rate > 60 mL/min (>60) Glucose Level 108 MG/DL (74-106) H Calcium Level 9.4 MG/DL (8.5-10.1) Current Medications Medications (Trade) Dose Ordered Sig/Kevin Route PRN Reason Start Time Stop Time Status Last Admin Dose Admin Acetaminophen (Tylenol) 650 mg Q6H PRN ORAL temp more than 100 06/20/18 17:12 07/18/18 17:11 Ascorbic Acid (Vitamin C) 500 mg TWICE A DAY ORAL 06/18/18 09:00 07/18/18 08:59 06/22/18 08:45 Baclofen (Lioresal) 10 mg THREE TIMES A DAY ORAL 06/18/18 09:00 07/18/18 08:59 06/22/18 13:12 Bisacodyl (Dulcolax) 20 mg DAILYPRN PRN ORAL Constipation 06/18/18 09:00 07/18/18 08:59 Chlorhexidine Gluconate (Mariah-Hex 2%) 1 applic DAILY@1999 TOPIC 06/19/18 20:00 07/19/18 19:59 06/22/18 02:37 Ciprofloxacin (Cipro 500mg tab) 500 mg EVERY 12 HOURS ORAL 06/20/18 21:00 06/27/18 20:59 06/22/18 08:44 Citalopram Hydrobromide (celeXA) 20 mg DAILY ORAL 06/22/18 10:45 07/22/18 10:44 06/22/18 11:01 Dextrose (Dextrose 50%) 25 ml Q30M PRN IV Hypoglycemia 06/18/18 09:00 07/18/18 08:59 Dextrose (Dextrose 50%) 50 ml Q30M PRN IV Hypoglycemia 06/18/18 09:00 07/18/18 08:59 Diphenhydramine HCl (Benadryl) 25 mg Q6H PRN ORAL Itching 06/20/18 10:00 07/20/18 09:59 Docusate Sodium (Colace) 250 mg DAILY ORAL 06/18/18 09:00 07/18/18 08:59 06/22/18 08:44 Furosemide (Lasix) 40 mg DAILY IV 06/22/18 09:00 07/22/18 08:59 06/22/18 08:45 Gabapentin (Neurontin) 300 mg THREE TIMES A DAY ORAL 06/18/18 09:00 07/18/18 08:59 06/22/18 13:12 Lorazepam (Ativan) 2 mg Q6H PRN ORAL For Anxiety 06/18/18 18:00 06/25/18 17:59 06/22/18 11:01 Magnesium Hydroxide (Mom) 30 ml DAILY ORAL 06/18/18 09:00 07/18/18 08:59 06/22/18 08:45 Metronidazole (Flagyl) 500 mg Q8HR ORAL 06/20/18 14:00 06/27/18 13:59 06/22/18 13:13 Midodrine (Pro-Amatine) 10 mg THREE TIMES A DAY ORAL 06/18/18 09:00 07/18/18 08:59 06/22/18 13:13 Morphine Sulfate (MS Contin) 15 mg EVERY 12 HOURS ORAL 06/18/18 09:00 06/25/18 08:59 06/22/18 08:45 Ondansetron HCl (Zofran) 4 mg Q6H PRN ORAL Nausea & Vomiting 06/18/18 09:00 07/18/18 08:59 Oxycodone/ Acetaminophen (Percocet 5-325) 1 tab Q4H PRN ORAL For Pain 06/22/18 08:00 06/29/18 07:59 06/22/18 13:13 Quetiapine Fumarate (SEROquel) 100 mg BEDTIME ORAL 06/18/18 21:00 07/18/18 20:59 06/21/18 21:57 Rivaroxaban (Xarelto) 15 mg DAILY ORAL 06/18/18 09:00 07/18/18 08:59 06/22/18 08:45 Vancomycin HCl (Vanco rx to dose) 1 ea DAILY PRN MISC Per rx protocol 06/20/18 15:30 07/20/18 15:29 Vancomycin HCl 750 mg/Sodium Chloride 275 ml @ 183.333 mls/hr Q12HR@0400,1600 IVPB 06/20/18 16:00 06/25/18 15:59 06/22/18 16:18 Placido Butterfield MD Jun 22, 2018 17:10
--- NOTE | 2018-06-22 19:26 | NUR ---
NURSE NOTES: Received patient on bed awake, no s/s of any distress, denies any pain as of this time. DOMINICK PICC line patent and intact, FC intact and draining to gravity, Bed in low position and locked, call light within reach, will continue to monitor.
--- NOTE | 2018-06-22 19:26 | NUR ---
HAND-OFF: Report given to Christopher LAL.
[2018-06-22 20:00] VITALS: BP 111/56
[2018-06-23] VITALS: BP 93/58
[2018-06-23] MEDS: Vancomycin 750mg/NS 275ml IVPB SCH ×4 (03:38→16:22)
[2018-06-23 04:00] VITALS: BP 114/75
--- NOTE | 2018-06-23 04:30 | NUR ---
NURSE NOTES: Patient refused to change the dressing in her lower legs, she said "it was changed yesterday so you don't need to change it again".
[2018-06-23] MEDS: metroNIDAZOLE 500mg tab ORAL SCH ×2 (05:55→14:50)
[2018-06-23] MEDS: oxyCODONE HCL/Acetaminophen 5/325mg ORAL PRN ×3 (05:58→19:33)
--- NOTE | 2018-06-23 07:19 | NUR ---
NURSE NOTES: received report from HALI White. patient in bed sleeping, no respiratory distress noted. no c/o pain at this time. f/c draining well. bed in the lowest position. call light within reach. will continue to monitor.
--- NOTE | 2018-06-23 07:44 | NUR ---
HAND-OFF: Report given to Quinton LAL.
[2018-06-23 08:00] VITALS: BP 124/76
[2018-06-23 08:04] LABS: BASOPHILS % (AUTO) 0.6 % (0.0-2.0); EOSINOPHILS % (AUTO) 4.7 % (0.0-3.0); HEMATOCRIT 33.6 % (37.0-47.0); HEMOGLOBIN 11.3 G/DL (12.0-16.0); LYMPHOCYTES % (AUTO) 34.9 % (20.0-45.0); MEAN CORPUSCULAR VOLUME 87 FL (80-99); MONOCYTES % (AUTO) 6.1 % (1.0-10.0); NEUTROPHILS % (AUTO) 53.7 % (45.0-75.0); PLATELET COUNT 321 K/UL (150-450); RED BLOOD COUNT 3.88 M/UL (4.20-5.40); WHITE BLOOD COUNT 6.6 K/UL (4.8-10.8)
[2018-06-23 08:18] LABS: ANION GAP 9 mmol/L (5-15); BLOOD UREA NITROGEN 20 mg/dL (7-18); CALCIUM 9.5 MG/DL (8.5-10.1); CARBON DIOXIDE 31 MMOL/L (21-32); CHLORIDE 103 MMOL/L (98-107); CREATININE 0.8 MG/DL (0.55-1.30); POTASSIUM 3.4 MMOL/L (3.5-5.1); SODIUM 142 MMOL/L (136-145)
[2018-06-23] MEDS: Docusate 250mg cap ORAL SCH ×2 (09:00→09:16)
[2018-06-23] MEDS: Milk of Magnesia 30ml Ud ORAL SCH ×2 (09:00→09:20)
[2018-06-23] MEDS: Ciprofloxacin 500mg tab ORAL SCH (09:16)
[2018-06-23] MEDS: Xarelto 15mg tab ORAL SCH (09:16)
[2018-06-23] MEDS: Ascorbic Acid 500mg tab ORAL SCH ×2 (09:16→18:39)
[2018-06-23] MEDS: Midodrine 10mg tab ORAL SCH ×3 (09:16→18:40)
[2018-06-23] MEDS: Citalopram Hydrobromide 10mg Tab ORAL SCH (09:17)
[2018-06-23] MEDS: MS Contin 15mg tab ORAL SCH (09:18)
[2018-06-23] MEDS ORDERED: CLINDAMYCIN HC300 MG ORAL (11:42)
[2018-06-23] MEDS ORDERED: CIPROFLOXACIN500 M2 ORAL (11:42)
--- NOTE | 2018-06-23 11:49 | Discharge Summary ---
Discharge Summary Hospital Course Date of Admission Jun 18, 2018 at 01:22 Date of Discharge 06/23/18 Admitting Diagnosis cellulitis LEs, UTI/hematuria HPI Vinay Schuler is a 57 year old female who was admitted on Jun 18, 2018 at 01:22 for Cellulitis Lower Extremities,Hematuria Hospital Course Patient presented with bilateral led swelling and drainage - admitted to the medical service for LE cellulitis, treated with broad spectrum antibiotics, seen by ID and wound care. Treated with IV Lasix to help with edema. Also found to to have pseudomonas UTI. Patient clinically improved and will be discharged back to her residential on 4 more days of Cipro and Clinda #Bilateral LE cellulitis and drainage -Seen by ID and wound care -change antibiotics to clindamycin for 4 more days -local wound care -continue Lasix #Chronic Tinajero with pyuria and hematuria #Catheter related Pseudomonas UTI -change to Cipro for 4 more days #Chronic sacral pressure ulcer -Surgery eval appreciated #Hypokalemia -give another dose of KCl -repeat BMP in AM #Chronic pain #Narcotic dependance -resume outpatient pain regimen #History of atrial fibrillation -continue Xarelto #morbid obesity #paraplegia #neurogenic bladder -continue supportive care Discharge Medications New Medications: Ciprofloxacin Hcl* (Ciprofloxacin Hcl*) 500 Mg Tablet 500 MG ORAL Q12H for 4 Days, #8 TAB 0 Refills Clindamycin Hcl (Clindamycin Hcl) 300 Mg Capsule 600 MG ORAL THREE TIMES A DAY for 4 Days, #12 CAP Continued Medications: Acetaminophen* (Acetaminophen 325MG Tablet*) 325 Mg Tablet 325 MG ORAL Q6H PRN for For Pain, TAB Aripiprazole* (Abilify*) 10 Mg Tablet 10 MG ORAL DAILY, TAB Ascorbic Acid* (Vitamin C*) 500 Mg Tablet 500 MG ORAL TWICE A DAY, TAB Baclofen* (Baclofen*) 10 Mg Tablet 10 MG ORAL THREE TIMES A DAY, TAB Bisacodyl* (Dulcolax*) 5 Mg Tablet.dr 20 MG ORAL ONCE, #4 TAB 0 Refills Cranberry Fruit (Cranberry) 500 Mg Tab.chew 500 MG PO, TAB Diphenhydramine HCl (Benadryl Itch Stopping) 103 Ml Gel..ml. 118 ML TP, ML Diphenhydramine Hcl* (Diphenhydramine Hcl*) 25 Mg Capsule 25 MG ORAL Q6H PRN for Itching, #30 CAP 0 Refills Docusate Sodium (Docusate Sodium) 250 Mg Capsule 250 MG ORAL DAILY, CAP Elvitegr/Cobicist/Emtric/Tenof (Stribild Tablet) 1 Each Tablet 1 EACH PO, TAB Enoxaparin (Lovenox) 40 Mg/0.4 Ml Syringe 40 MG SUBQ, MG Esomeprazole Magnesium (Nexium) 40 Mg Capsule.dr 40 MG ORAL DAILY, CAP Ferrous Sulfate (Ferrous Sulfate) 325 Mg Tablet.dr 325 MG ORAL, #30 TAB 0 Refills Furosemide* (Lasix*) 40 Mg Tablet 40 MG ORAL DAILY, TAB Gabapentin (Neurontin) 300 Mg Capsule 300 MG ORAL THREE TIMES A DAY, #15 CAP 0 Refills Magnesium Hydroxide (Milk of Magnesia) 400 Mg/5 Ml Oral.susp 30 ML ORAL DAILY, ML Melatonin (Melatonin) 3 Mg Tab.rapdis 3 MG PO, TAB Midodrine (Midodrine HCl) 10 Mg Tablet 10 MG ORAL THREE TIMES A DAY, TAB Morphine Sulfate (Morphine Sulfate) 15 Mg Tablet 15 MG ORAL EVERY 12 HOURS, #30 TAB 0 Refills Ondansetron (Zofran) 4 Mg Tablet 4 MG ORAL Q6H PRN for Nausea & Vomiting, TAB Oxycodone/Acetaminophen 5-325* (Percocet 5-325 Mg Tablet*) 1 Each Tablet 1 TAB ORAL Q6H PRN for For Pain, #30 TAB 0 Refills Potassium Chloride (Potassium Chloride) 20 Meq Packet 20 MEQ ORAL DAILY, #30 PKT 0 Refills Quetiapine Fumarate* (Seroquel*) 25 Mg Tablet 25 MG ORAL DAILY, TAB Rivaroxaban (Xarelto) 15 Mg Tablet 15 MG ORAL for 30 Days, MG 0 Refills Tizanidine Hcl (Zanaflex) 4 Mg Capsule 4 MG ORAL THREE TIMES A DAY, #90 CAP 0 Refills Zinc (Zinc) 50 Mg Tablet 50 MG ORAL, TAB Discontinued Medications: Cephalexin* (Keflex*) 500 Mg Capsule 250 MG ORAL EVERY 6 HOURS, CAP Ertapenem (Invanz) 1 Gm Vial 1 GM IM DAILY, VIAL Discharge Condition Upon Discharge: improving Discharge Disposition Patient was discharged to residential Discharge Diagnoses: (1) Bilateral lower leg cellulitis (2) UTI (urinary tract infection) Jitendra Sharma MD Jun 23, 2018 11:49
--- NOTE | 2018-06-23 11:54 | NUR ---
NURSE NOTES: BP was 98/63 HR 92. patient requested percocet3-325 tab po for pain. Dr. Esquivel was attending with patient. notified and given medication as ordered. will continue to monitor.
[2018-06-23 12:00] VITALS: BP 98/63
--- NOTE | 2018-06-23 12:39 | NUR ---
NURSE NOTES: patient has new order of K dur 40meq(20meq 2tabs) po once. I accidentally pulled out one tab and closed cubic. i put new order K dur 20meq tab po once. order noted and carried out.
--- NOTE | 2018-06-23 12:44 | General Progress Note ---
Assessment/Plan Problem List: (1) Bipolar 1 disorder ICD Codes: F31.9 - Bipolar disorder, unspecified SNOMED: 710165281 Assessment/Plan dc Seroquel to 100mg po qhs Ativan 2mg q 6hr/prn/agitation celexa 20mg qam klonopin 1mg po qhs Subjective Neurologic/Psychiatric: Reports: anxiety, depressed Allergies: Coded Allergies: No Known Allergies (Unverified , 06/17/18) Subjective irritable angry verbally abusive refused Seroquel Objective Last 24 Hour Vital Signs Date Time Temp Pulse Resp B/P (MAP) Pulse Ox O2 Delivery O2 Flow Rate FiO2 06/23/18 12:00 98.1 92 19 98/63 (75) 97 06/23/18 09:00 Room Air 06/23/18 08:00 98.1 90 19 124/76 (92) 97 06/23/18 04:00 98.5 90 20 114/75 (88) 92 06/23/18 00:00 98.0 80 20 93/58 (70) 99 06/22/18 21:00 Room Air 06/22/18 20:00 98.1 88 20 111/56 (74) 100 06/22/18 16:00 99.8 96 18 122/65 (84) 98 Intake and Output 06/22/18 06/23/18 18:59 06:59 Intake Total 700 ml Output Total 1600 ml Balance -900 ml Intake Oral 700 ml Output Urine Total 1600 ml # Voids 1 Laboratory Tests 06/23/18 06:00: White Blood Count 6.6, Red Blood Count 3.88L, Hemoglobin 11.3L, Hematocrit 33.6L , Mean Corpuscular Volume 87, Mean Corpuscular Hemoglobin 29.2, Mean Corpuscular Hemoglobin Concent 33.8, Red Cell Distribution Width 14.0, Platelet Count 321, Mean Platelet Volume 5.4L, Neutrophils (%) (Auto) 53.7, Lymphocytes ( %) (Auto) 34.9, Monocytes (%) (Auto) 6.1, Eosinophils (%) (Auto) 4.7H, Basophils (%) (Auto) 0.6, Sodium Level 142, Potassium Level 3.4L, Chloride Level 103, Carbon Dioxide Level 31, Anion Gap 9, Blood Urea Nitrogen 20H, Creatinine 0.8, Estimat Glomerular Filtration Rate > 60, Glucose Level 110H, Calcium Level 9.5 Height (Feet): 5 Height (Inches): 4.00 Weight (Pounds): 220 General Appearance: WD/WN, alert, agitated, morbidly obese Neurologic: oriented x 3, responsive, depressed affect Ariel Boyer MD Jun 23, 2018 12:44
--- NOTE | 2018-06-23 13:24 | NUR ---
*-* DISCHARGE PLANNING *-* PATIENT HAS BEEN REFFERED BACK TO: [facility] F:[phone] P:[phone]
--- NOTE | 2018-06-23 13:28 | NUR ---
[employer] OFFICER NOTES PT ACCEPTED TO [facility] ROOM 316 BED A AFTER 5PM. CORRECTION
--- NOTE | 2018-06-23 13:58 | NUR ---
NURSE NOTES: Patient will be discharged to [facility] on 06/23/2018 @5pm. given report to HALI Mosley. patient in alert. oriented. verbally responsive. no respiratory distress noted. no c/o pain at this time.
--- NOTE | 2018-06-23 14:26 | Surgery Progress Note ---
Surgery Progress Note Subjective Additional Comments no acute events. unchanged Objective Last 24 Hour Vital Signs Date Time Temp Pulse Resp B/P (MAP) Pulse Ox O2 Delivery O2 Flow Rate FiO2 06/23/18 12:00 98.1 92 19 98/63 (75) 97 06/23/18 09:00 Room Air 06/23/18 08:00 98.1 90 19 124/76 (92) 97 06/23/18 04:00 98.5 90 20 114/75 (88) 92 06/23/18 00:00 98.0 80 20 93/58 (70) 99 06/22/18 21:00 Room Air 06/22/18 20:00 98.1 88 20 111/56 (74) 100 06/22/18 16:00 99.8 96 18 122/65 (84) 98 I&O Intake and Output 06/22/18 06/23/18 18:59 06:59 Intake Total 700 ml Output Total 1600 ml Balance -900 ml Intake Oral 700 ml Output Urine Total 1600 ml # Voids 1 Dressing: other Wound: other Drains: other Cardiovascular: RSR Respiratory: decreased breath sounds Abdomen: soft, non-tender, present bowel sounds, non-distended Extremities: other Laboratory Tests Test 06/23/18 06:00 White Blood Count 6.6 K/UL (4.8-10.8) Red Blood Count 3.88 M/UL (4.20-5.40) L Hemoglobin 11.3 G/DL (12.0-16.0) L Hematocrit 33.6 % (37.0-47.0) L Mean Corpuscular Volume 87 FL (80-99) Mean Corpuscular Hemoglobin 29.2 PG (27.0-31.0) Mean Corpuscular Hemoglobin Concent 33.8 G/DL (32.0-36.0) Red Cell Distribution Width 14.0 % (11.6-14.8) Platelet Count 321 K/UL (150-450) Mean Platelet Volume 5.4 FL (6.5-10.1) L Neutrophils (%) (Auto) 53.7 % (45.0-75.0) Lymphocytes (%) (Auto) 34.9 % (20.0-45.0) Monocytes (%) (Auto) 6.1 % (1.0-10.0) Eosinophils (%) (Auto) 4.7 % (0.0-3.0) H Basophils (%) (Auto) 0.6 % (0.0-2.0) Sodium Level 142 MMOL/L (136-145) Potassium Level 3.4 MMOL/L (3.5-5.1) L Chloride Level 103 MMOL/L (98-107) Carbon Dioxide Level 31 MMOL/L (21-32) Anion Gap 9 mmol/L (5-15) Blood Urea Nitrogen 20 mg/dL (7-18) H Creatinine 0.8 MG/DL (0.55-1.30) Estimat Glomerular Filtration Rate > 60 mL/min (>60) Glucose Level 110 MG/DL (74-106) H Calcium Level 9.5 MG/DL (8.5-10.1) Plan Problems: (1) Stage 4 skin ulcer of sacral region Assessment & Plan: chronic appearing sacral decubitus ulcer with multiple areas of healing and skin breakdown. area of stage 4 with tracking in superior direction. some minimal drainage. no foul odor. periwound erythema but no induration. states she has had it for long time and is painful. unable to participate in exam because of pain -no acute surgical intervention planed -limited exam given pain -will plan to reexamine soon -for now turn q2h -off load pressure -air mattress -apply skin protectant and foam dressings thank you (2) Bilateral lower leg cellulitis Assessment & Plan: bilateral lower extremity cellulitis with edema, tenderness , erythema. no fluctuance or abscess. no drainage -keep legs elevated -apply skin protectant, abd and wrap -edema improving will follow with recs d/c planning thank you Juwan Malcolm Jun 23, 2018 14:26
[2018-06-23 16:00] VITALS: BP 124/76
--- NOTE | 2018-06-23 16:14 | NUR ---
NURSE NOTES: Patient refused to change dressing on sacral area. explained risk and benefit but still refused.
--- NOTE | 2018-06-23 16:31 | NUR ---
NURSE NOTES: Dr. Esquivel ordered change to yan catheter before discharge. patient refused to get a new one at hospital. she wants to get one when she gets back to half-way([facility]) order noted and carried out.
--- NOTE | 2018-06-23 16:51 | NUR ---
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 S/W MARISA [phone]
--- NOTE | 2018-06-23 17:30 | NUR ---
NURSE NOTES: notified daughter(leola Menjivar) regarding discharge plan. if patient can not get a bed at [facility], patient will be discharged to home with home health as MD order. the daughter verbalized understood and agreed Addendum: 06/23/18 at 1739 by TODD GONSALEZ RN error above wrong patient
--- NOTE | 2018-06-23 18:42 | NUR ---
NURSE NOTES: [facility] scheduled at 5pm. spoke to [facility], they will be arrived at [phone]
--- NOTE | 2018-06-23 19:07 | NUR ---
NURSE NOTES: Received patient on bed awake, no s/s of any distress. Bed in low position and locked, call light within reach, will continue to monitor.
--- NOTE | 2018-06-23 19:07 | NUR ---
HAND-OFF: Report given to HALI White.
--- NOTE | 2018-06-23 20:29 | NUR ---
NURSE NOTES: Patient left the facility, discharged to [facility] vital signs stable upon discharged. Report given to EMT.
--- NOTE | 2018-06-24 09:25 | NUR ---
*-* INSURANCE *-* DISCHARGE SUMMARY HAS BEEN FAXED TO: LINSEY BRENNANM:JESSICA P:[phone] F:[phone]
== END 2018-06-23 20:30 | DRG 466 ==
LOC: EDBD 22:39 → EMR 23:17 → 4E 06-18 01:22 → EDBEDREQ 06-18 01:33 → 4E 06-18 02:51
PROC: 02HV33Z Insertion of Infusion Device into Superior Vena Cava, Percutaneous Approach (ICD-10-PCS; principal; 2018-06-19)
DX: T83.511A Infection and inflammatory reaction due to indwelling urethral catheter, initial encounter (principal); L89.154 Pressure ulcer of sacral region, stage 4; B20 Human immunodeficiency virus [HIV] disease; L03.115 Cellulitis of right lower limb; F11.20 Opioid dependence, uncomplicated; E66.01 Morbid (severe) obesity due to excess calories; G82.20 Paraplegia, unspecified; I48.91 Unspecified atrial fibrillation; L03.116 Cellulitis of left lower limb; Y84.6 Urinary catheterization as the cause of abnormal reaction of the patient, or of later complication, without mention of misadventure at the time of the procedure; Y92.009 Unspecified place in unspecified non-institutional (private) residence as the place of occurrence of the external cause; B96.5 Pseudomonas (aeruginosa) (mallei) (pseudomallei) as the cause of diseases classified elsewhere; E87.6 Hypokalemia; G89.29 Other chronic pain; Z79.01 Long term (current) use of anticoagulants; N31.9 Neuromuscular dysfunction of bladder, unspecified; F31.9 Bipolar disorder, unspecified; Z68.37 Body mass index [BMI] 37.0-37.9, adult
CPT/HCPCS: 36415; 36569; 76937; 80048; 80053; 80202; 81003; 83605; 85025; 86360; 87040; 87086; 87181; 87324; 87536; 93005; 93970; 96365; 96375; 99285; J8499